=== PATIENT | female | born 1955 | race Caucasian/White ===

== ENCOUNTER 2016-10-16 21:28 | Inpatient (IN) | payer OTHER ==
[~2016-10-16] VITALS: Ht 157.4 cm; Wt 72.6 kg
[~2016-10-16 21:28] MED LIST: ADVAIR 250-501 EACH INH; ADVAIR DISKUS 21 DSK INH; ALBUTEROL SULF0.5 ML INH; ALBUTEROL2.5 MG/3 M INH/SOL; AZITHROMYCIN250 M1 PO; AZITHROMYCIN500 M3 PO; BACTRIM DS 8001 TAB PO; BENZONATATE200 M1 PO; BIAXIN500 M1 PO; COMBIVENT RESPIM4 GM INH; COTOLONE5 MG PO; FLEXERIL10 MG PO; MEDROL4 M2 PO; MOBIC15 MG PO; NICOTINE PATCH1 EACH TOP; NORCO 325 MG-51 TAB PO; PREDNICOT20 MG PO; PREDNISONE10 M2 PO; PREDNISONE20 M1 PO; PREDNISONE5 MG PO; PROAIR HFA0.09 MG/Ac INH; PROAIR HFA8.5 GM INH; Robitussin PO; SPIRIVA18 MCG INH; TESSALON PERLE100 M1 PO; TRAMADOL50 MG PO; TYLENOL #31 TAB PO; ZITHROMAX Z-PA250 M1 PO
--- NOTE | 2016-10-16 21:31 | ED DYSPNEA/ASTHMA COMPLAINT ---
History of Present Illness General Chief Complaint: Dyspnea (COPD, CHF, Other) Stated Complaint: DIFF BREATHING Source: patient Exam Limitations: no limitations Vital Signs & Intake/Output Vital Signs & Intake/Output Vital Signs Date Time Temp Pulse Resp B/P B/P Pulse O2 O2 Flow FiO2 Mean Ox Delivery Rate 10/17 0255 97.6 111 20 131/76 94 Nasal 2.0L Cannula 10/17 0215 94 Nasal 2.0L Cannula 10/17 0144 97.8 109 22 124/73 94 Nasal 2.0L Cannula 10/16 2303 98.0 119 20 124/78 98 Room Air 10/16 2146 96 Non 100% ReBreather 10/16 2144 97 Aerosol 10L Mask 10/160 97.0 136 32 176/95 90 Room Air ED Intake and Output 10/17 0000 10/16 1200 Intake Total 350 Output Total Balance 350 Intake, IV 350 Patient 160 lb Weight Weight Reported by Patient Measurement Method Allergies Coded Allergies: Penicillins (BREAKOUT IN RED BLOTCHES AND BUMPS ALL OVER BODY PER PT 10/16/16) codeine (Intermediate, ITCHING 10/16/16) Reconcile Medications Albuterol Sulfate (Proair Hfa) 90 MCG HFA.AER.AD 2-4 PUF INH Q4-6 PRN PRN shortness of breath Albuterol Sulfate 2.5 MG/3 ML VIAL.NEB 1 Vial INH/OBIE Q4P PRN wheezing/ shortness of breath Reason to Stop at ADM: TR NEBS Fluticasone/Salmeterol (Advair 250-50 Diskus) 1 EACH BLST.W.DEV 1 PUF INH BID COPD (Reported) Reason to Stop at ADM: TR NEBS Ipratropium/Albuterol Sulfate (Combivent Respimat Inhal [place]) 4 GM MIST.INHAL 1 PUFF INH BID PRN SOB (Reported) Reason to Stop at ADM: [facility] NE[facility] Tiotropium [place] (Spiriva) 18 MCG CAP.W.DEV 1 CAP INH DAILY BREATHING PROBLEMS (Reported) Triage Nurses Notes Reviewed? yes Onset: Gradual Duration: hour(s):, getting worse Timing: recent history Severity: moderate, severe Activities at Onset: none Prior Episodes/Possible Cause: occasional episodes Associated Symptoms: cough, wheezing HPI: 61-year-old woman history COPD presents with cough wheezing dyspnea in acute distress. She states that her symptoms began yesterday and progressed throughout the day. She has been taking several nebs without avail. She called 911. The medics arrived and found her O2 sat to be in the low to mid 80s. They gave her a DuoNeb in route which appeared to help her moderately. They noted that she was breathless at rest unable to complete full sentences. She notes no chest pain fever significant sputum headache abdominal pain nausea vomiting diarrhea. Past History Medical History Any Pertinent Medical History? see below for history Neurological: MASTOID OPERATION EENT: RIGHT EAR INFECTIONS Cardiovascular: NONE Respiratory: asthma, COPD Gastrointestinal: NONE Hepatic: hepatitis C, RESOLVED Renal: NONE Musculoskeletal: NONE Psychiatric: NONE Endocrine: NONE Blood Disorders: NONE Cancer(s): NONE COMMUNITY ENGAGEMENT COORDINATOR/Reproductive: NONE History of MRSA: No History of VRE: No History of CDIFF: No Surgical History Surgical History: LEFT MASTOID SURGERY Psychosocial History Who do you live with Significant Other Services at Home None What is your primary language Malay Family History Hx Contributory? No Review of Systems Review of Systems Constitutional: Reports: no symptoms. EENTM: Reports: no symptoms. Respiratory: Reports: no symptoms. Cardiovascular: Reports: no symptoms. GI: Reports: no symptoms. Genitourinary: Reports: no symptoms. Musculoskeletal: Reports: no symptoms. Skin: Reports: no symptoms. Neurological/Psychological: Reports: no symptoms. Hematologic/Endocrine: Reports: no symptoms. Immunologic/Allergic: Reports: no symptoms. All Other Systems: Reviewed and Negative Physical Exam Physical Exam General Appearance: well developed/nourished, moderate distress Head: atraumatic, normal appearance Eyes: Bilateral: normal appearance. Ears, Nose, Throat: normal pharynx Neck: normal inspection Respiratory: accessory muscle use, wheezing, respiratory distress Cardiovascular: regular rate/rhythm Gastrointestinal: normal bowel sounds, soft, non-tender, no organomegaly Extremities: normal inspection Neurologic/Psych: no motor/sensory deficits, awake, alert, oriented x 3 Skin: intact, normal color, warm/dry Core Measures ACS in differential dx? No Severe Sepsis Present: No Septic Shock Present: No Progress Differential Diagnosis: asthma, AMI, CHF, COPD Plan of Care: Orders Procedure Date/time Status Regular Diet 10/17 B Active CBC WITHOUT DIFFERENTIAL 10/17 599 Active BASIC ELECTROLYTES PLUS BUN&CR 10/17 599 Active Vital Signs 10/17 0213 Complete Teach/Educate 10/17 212 Active Pain Treatment and Response 10/17 212 Active Nutritional Intake, Monitor 10/17 212 Active Isolation 10/17 212 Active Intake & Output 10/17 212 Complete Patient Care Conference 10/17 212 Active Activity/Ambulation 10/17 212 Active Pathway - chart 10/17 004 Active Code Status 10/17 0048 Active TRC EVALUATION (GEN) 10/17 UNK Active House Staff 10/17 UNK Active VTE Mechanical Prophylaxis 10/17 UNK Active FingerStick- Glucose 10/17 UNK Active Patient Data 10/16 2334 Active Saline Lock 10/16 2250 Active Misc Message 10/16 2250 Active ED Holding Orders 10/16 2250 Active Admit to inpatient 10/16 2250 Active Vital Signs 10/16 2250 Active Code Status 10/16 2250 Complete Intake & Output 10/16 2248 Active EKG 10/16 2241 Active BLOOD CULTURE 10/16 2134 Active BLOOD CULTURE 10/17 2131 Active TROPONIN LEVEL 10/16 2130 Complete COMPREHENSIVE METABOLIC PANEL 10/16 2130 Complete CBC WITHOUT DIFFERENTIAL 10/16 2130 Complete Current Medications Sig/Mady Start time Last Medication Dose Stop Time Status Admin Azithromycin 500 MG 2200 10/17 2200 AC (Zithromax) Sodium Chloride 250 ML (Normal Saline 0.9%) Budesonide/ 2 PUF BID 10/17 1000 AC Formoterol Fumarate (Symbicort) Enoxaparin Sodium 40 MG DAILY 10/17 1000 AC (Lovenox) Tiotropium [place] 1 PUF DAILY 10/17 1000 AC (Spiriva) Methylprednisolone 40 MG Q6 10/17 0600 AC (Solumedrol) Laboratory Tests 10/16/162155: Anion Gap 12, Estimated GFR > 60, BUN/Creatinine Ratio 20.0, Glucose 133 H, Calcium 9.4, Total Bilirubin 0.5, AST 25, ALT 34, Alkaline Phosphatase 82, Troponin I < 0.01, Total Protein 7.8, Albumin 4.5, Globulin 3.3, Albumin/ Globulin Ratio 1.4, CBC w Diff NO MAN DIFF REQ, RBC 4.64, MCV 81.2, MCH 26.0 L, RDW 14.3, MPV 7.8, Gran % 57.7, Lymphocytes % 31.6, Monocytes % 6.4, Eosinophils % 3.2, Basophils % 1.1, Absolute Granulocytes 7.8 H, Absolute Lymphocytes 4.3 H, Absolute Monocytes 0.9 H, Absolute Eosinophils 0.4, Absolute Basophils 0.1, PUBS MCHC 32.0 L Microbiology 10/16 2217 BLOOD: Blood Culture - RECD 10/16 2199 BLOOD: Blood Culture - RECD Diagnostic Imaging: Viewed by Me: Radiology Read. Discussed w/RAD: Radiology Read. CXR Impression: no acute abnormality, no infiltrates, normal size heart, normal mediastinum Initial ED EKG: SINUS TACH Comments: PATIENT: FABIAN RAMOS PRESENT AGE: 61 PATIENT ACCOUNT NO: [id number] : 59 LOCATION: [facility] ORDERING PHYSICIAN: JAN ODOM MD SERVICE DATE: 10/16/16 EXAM TYPE: RAD - XRY-PORTABLE CHEST XRAY EXAMINATION: XR PORTABLE CHEST CLINICAL INFORMATION: Dyspnea. COMPARISON: Portable chest x-ray 05/28/2016. TECHNIQUE: Portable frontal view of the chest was obtained. FINDINGS: The lungs are well-expanded and clear without focal airspace consolidation. No pleural effusions or pneumothoraces are identified. Cardiomediastinal contours are within normal limits. Soft tissues are unremarkable. No acute osseous abnormality is identified. IMPRESSION: No acute pulmonary process. DICTATED BY: PATEL GUZMAN MD DATE/TIME DICTATED:10/16/162199 [employer]:KIMBER DATE/TIME TRANSCRIBED:10/16/162199 CONFIDENTIAL, DO NOT COPY WITHOUT APPROPRIATE AUTHORIZATION. <Electronically signed in Other Vendor System> SIGNED BY: PATEL GUZMAN MD 10/16/162203 Departure Departure Disposition: STILL A PATIENT Condition: Stable Clinical Impression Primary Impression: COPD exacerbation Secondary Impressions: Respiratory distress Referrals: IDALIA RAMIREZ APRN Departure Forms: Customer Survey General Discharge Information Critical Care Note Critical Care Note Critical Care Time: 30-74 min Comments: Pt responded well to continuous nebs, magnesium sulfate.
--- NOTE | 2016-10-16 21:38 | NUR ---
PT BIBA FROM HOME C/C DIFF BREATHING WITH HX OF COPD/ASTHMA. USED OWN INHALERS MULTIPLE TIMES TODAY AND ARRIVES WITH DUONEB FROM EMS. R/A SATS 90%. +INCREASED WORK OF BREATHING, +TACHYPNEA. PLACED ON NRB MASK WITH SATS IMPROVED. PT DENIES ANY PAIN. DR ODOM INTO EVALUATE PATIENT ON ARRIVAL TO ER. RESP PAGED FOR NEB TREATMENT.
--- NOTE | 2016-10-16 21:38 | NUR ---
RESP AT BEDSIDE FOR NEB TREATMENT
--- NOTE | 2016-10-16 21:39 | NUR ---
IV ACCESS ESTABLISHED #22 RH BY VANNESA WEINSTEIN AND #22 LH BY VANNESA PATEL. IV MAGNESIUM INFUSION INITIATED BY VANNESA ULLOA, PER ORDERS DR ODOM.
--- NOTE | 2016-10-16 21:54 | NUR ---
MEDICATED WITH IV SOLUMEDROL BY VANNESA ULLOA
[2016-10-16 21:57] LABS: ABSOLUTE BASOPHIL COUNT 0.1 /CUMM (0.0-0.2); ABSOLUTE EOSINOPHIL COUNT 0.4 /CUMM (0.0-0.7); ABSOLUTE GRANULOCYTE CT 7.8 /CUMM (1.4-6.5); ABSOLUTE MONOCYTE COUNT 0.9 /CUMM (0.10-0.60); BASOPHIL % 1.1 % (0.0-2.0); EOSINOPHIL % 3.2 % (0-5); GRANULOCYTE % 57.7 % (42.2-75.2); HEMATOCRIT 37.7 % (37-47); MEAN CORPUSCULAR VOLUME 81.2 FL (81.0-99.0); MEAN PLATELET VOLUME 7.8 FL (7.4-10.4); PLATELET COUNT 374 /CUMM (130-400); RBC DISTRIBUTION WIDTH 14.3 % (11.5-14.5); RED BLOOD CELL CT 4.64 /CUMM (4.20-5.40); WHITE BLOOD CELL COUNT 13.6 /CUMM (4.8-10.8)
[2016-10-16 21:58] LABS: ABSOLUTE LYMPH COUNT 4.3 /CUMM (1.2-3.4)
--- NOTE | 2016-10-16 22:04 | RADIOLOGY REPORT ---
EXAMINATION: XR PORTABLE CHEST CLINICAL INFORMATION: Dyspnea. COMPARISON: Portable chest x-ray 05/28/2016. TECHNIQUE: Portable frontal view of the chest was obtained. FINDINGS: The lungs are well-expanded and clear without focal airspace consolidation. No pleural effusions or pneumothoraces are identified. Cardiomediastinal contours are within normal limits. Soft tissues are unremarkable. No acute osseous abnormality is identified. IMPRESSION: No acute pulmonary process.
--- NOTE | 2016-10-16 22:15 | NUR ---
B/C X 2 SETS DRAWN/SENT. DRAWN VIA BUTTERFLY FROM SEPERATE DRAWS. PT DIFFICULT STICK.
--- NOTE | 2016-10-16 22:28 | NUR ---
PT MEDICATED WITH IV ROCEPHIN AND IV ZITHROMAX PER ORDERS DR ODOM.
--- NOTE | 2016-10-16 22:48 | NUR ---
BERENICE NAIDU AT BEDSIDE FOR NEB TREATMENT
--- NOTE | 2016-10-17 00:07 | NUR ---
PT BED ASSIGNMENT 105-1
--- NOTE | 2016-10-17 00:58 | NUR ---
HOUSESTAFF HERE TO EVALUATE PATIENT
--- NOTE | 2016-10-17 01:16 | History & Physical ---
ZARIA CORNELL,[facility] 10/17/16 0103: General Information and HPI MD Statement: I have seen and personally examined FABIAN RAMOS and documented this H&P. The patient is a 61 year old F who presented with a patient stated chief complaint of [shortness of breath]. Source of Information: patient, old records Exam Limitations: no limitations History of Present Illness: Ms. Ramos is 61 year old female with past medical history significant for asthma, COPD not on home oxygen, multiple ear infections, hepatitis C s/p treatment with Harvony. Patient was BIBA with chief complaint of shortness of breath and lightheadedness for 1 day. Patient reported that 2 days ago, she noticed to have shortness of breath, lightheadedness progressively worsened, yesterday she smoked 3 cigarettes in the morning and around noon she used nictone patch as her breathing was getting very hard. She reported dry cough that started yesterday associated with chest tightness from cough spells, denied any fever, chills, palpitation, headache, visual changes, ear pain, sinus pain. upon medics arrival, her O2 sat was found to be in low to mid 80s. Patient denied any sick contact, recent travel. She denied any abdominal pain, nausea vomiting, diarrhea. Patient is very compliant with her medication, used to have her nebulizers and inhalers every day, no history of intubation, no history of ICU admission. She has drug allergy of penicillin and codeine. She had flu and pneumonia vaccine last year. 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 Patient started to smoke again 2 months ago, 6-8 cigarettes per day, last smoking was day of admission in the morning 3 cigarettes. Allergies/Medications Allergies: Coded Allergies: Penicillins (BREAKOUT IN RED BLOTCHES AND BUMPS ALL OVER BODY PER PT 10/16/16) codeine (Intermediate, ITCHING 10/16/16) Home Med list Albuterol Sulfate (Proair Hfa) 90 MCG HFA.AER.AD 2-4 PUF INH Q4-6 PRN PRN shortness of breath Albuterol Sulfate 2.5 MG/3 ML VIAL.NEB 1 Vial INH/OBIE Q4P PRN wheezing/ shortness of breath Reason to Stop at ADM: [facility] NEBS Fluticasone/Salmeterol (Advair 250-50 Diskus) 1 EACH BLST.W.DEV 1 PUF INH BID COPD (Reported) Reason to Stop at ADM: TR NEBS Ipratropium/Albuterol Sulfate (Combivent Respimat Inhal [place]) 4 GM MIST.INHAL 1 PUFF INH BID PRN SOB (Reported) Reason to Stop at ADM: [facility] NEBS Tiotropium [place] (Spiriva) 18 MCG CAP.W.DEV 1 CAP INH DAILY BREATHING PROBLEMS (Reported) Past History Travel History Traveled to [place] past 21 day No Medical History Neurological: NONE EENT: RIGHT EAR INFECTIONS Cardiovascular: NONE Respiratory: asthma, COPD Gastrointestinal: NONE Hepatic: hepatitis C, RESOLVED Renal: NONE Musculoskeletal: NONE Psychiatric: NONE Endocrine: NONE Blood Disorders: NONE Cancer(s): NONE TELEVISION ANNOUNCER/Reproductive: NONE History of MRSA: No History of VRE: No History of CDIFF: No Surgical History Surgical History: LEFT MASTOID SURGERY Past Family/Social History Psychosocial History Services at Home: None ETOH Use: denies use Illicit Drug Use: denies illicit drug use Functional Ability ADLs Independent: dressing, eating, toileting, bathing. Ambulation: independent Review of Systems Review of Systems Constitutional: Reports: see HPI. Exam & Diagnostic Data Last 24 Hrs of Vital Signs/I&O Vital Signs Date Time Temp Pulse Resp B/P B/P Pulse O2 O2 Flow FiO2 Mean Ox Delivery Rate 10/17 0144 97.8 109 22 124/73 94 Nasal 2.0L Cannula 10/16 2303 98.0 119 20 124/78 98 Room Air 10/16 2146 96 Non 100% ReBreather 10/16 2144 97 Aerosol 10L Mask 10/16 213 97.0 136 32 176/95 90 Room Air Intake & Output 10/17 0800 10/17 0000 10/16 1600 Intake Total 350 Output Total Balance 350 Intake, IV 350 Patient 72.575 kg Weight Weight Reported by Patient Measurement Method Physical Exam General Appearance Alert, Oriented X3, Cooperative, No Acute Distress Skin No Rashes, No Breakdown, No Significant Lesion Skin Temp/Moisture Exam: Warm/Dry HEENT Atraumatic, PERRLA, EOMI, Mucous Membr. moist/pink Neck Supple, No JVD Lymphatic no cervical lymphadenopathy Cardiovascular Regular Rate, Normal S1, Normal S2, No Murmurs Lungs bilateral decrease air entery with wheeze and ronchi, prologed expiratory phase Abdomen Normal Bowel Sounds, Soft, No Tenderness Neurological Normal Gait, Normal Speech, Strength at 5/5 X4 Ext, Normal Tone, Sensation Intact, Cranial Nerves 3-12 NL, Reflexes 2+ Extremities No Clubbing, No Cyanosis, No Edema, Normal Pulses Assessment/Plan Assessment: Ms. Ramos is 61 year old female with past medical history significant for asthma, COPD not on home oxygen, multiple ear infections, hepatitis C s/p treatment with Harvony. Patient was BIBA with chief complaint of shortness of breath and lightheadedness for 1 day. On admission Vitals temperature 90.7, blood pressure 176/95, pulse 136, respiratory rate 32 with saturation 97% on 2 L mask, changed to 100% nonrebreather Labs H&H 12.1/377, WBC 13.6, platelets 374, sodium 137, potassium 4.7, chloride 102, bicarbonate 24, BUN/creatinine 12/0.6, glucose 133, troponin < 0.01, LFT WNL Chest x-ray FINDINGS: The lungs are well-expanded and clear without focal airspace consolidation. No pleural effusions or pneumothoraces are identified. Cardiomediastinal contours are within normal limits. Soft tissues are unremarkable. No acute osseous abnormality is identified. IMPRESSION: No acute pulmonary process. Problem list #Acute hypoxic respiratory failure #Acute exacerbation COPD #Reactive leukocytosis #Tachycardia mostly because of beta agonist Plan -Admit patient to general medical floor -Continue Solu-Medrol 40 every 6 -Oxygen supplementation, keep oxygen saturation more than 92 per -Continue azithromycin to finish course of 5 days -TRC, nebs and inhalers -Check flu rapid test -Check Streptococcus and Legionella urine antigen -Palm consultation in a.m. -Smoking cessation counseling -Nicotine patch -Diet regular -DVT prophylaxis heparin subcutaneous -Code full As Ranked By This Provider Problem List: 1. COPD exacerbation Core Measures/Miscellaneous Acute Coronary Syndrome ACS Diagnosis: No Cerebrovascular Accident CVA/TIA Diagnosis: No Congestive Heart Failure CHF Diagnosis: No Venous Thromboembolism VTE Risk Factors: Age > 40 [facility] prophylaxis d/t: No contraindications No VTE Pharm Prophylaxis d/t: No contraindications VTE Diagnosis: No VTE Type: NONE VTE Confirmed by (Test): NONE Severe Sepsis Severe Sepsis Present: No Septic Shock Septic Shock Present: No Miscellaneous Documentation Attending Case Discussed With: AUGUSTINEKADEN TRUJILLO MD Primary Care Physician: JOSIAH HOUSTON APRN Patient sees these Specialists [place] Level of Patient Care: General Medicine GWEN PATEL 10/17/16 0149: Resident Review Statement Resident Statement: examined this patient, discussed with internet architect, agreed with internet architect, amended to note Other Findings: [id number] lady with past medical history of asthma, COPD not on home oxygen, hepatitis C posttreatment, bronchitis? Came with ambulance with chief complaint of shortness of breath and coughing. Reported that she started having shortness of breath about one day ago she also has baseline coughing which got worse for 2 days and she became so bad during the day with shortness of breath and coughing at she called ambulance came to the ED. She also reported lightheadedness with chest tightness. Denies any fever, chills, abdominal pain, nausea, vomiting, headache, and travel, sick contacts. She has started smoking about 3 months ago 6-8 cigarettes daily. She also secondhand smoker. Upon ED arrival patient received multiple nebulizer treatments and low potassium Ventimask for couple of hours however she improved with the treatment and IV magnesium and her oxygen requirement reduced 2 L. She is also tachycardic due to multiple albuterol treatments. Physical exam was notable for bilateral expiratory wheezing, tachycardia with normal S1 S2 ( details are above) CXR: IMPRESSION: No acute pulmonary process. EKG : Sinus tachycardia, 111, QTC 462, acute ST-T changes WBC 13.6, trops negative Assessment and plan #COPD exacerbation due to smoking * Admit the patient to general floor * Keep O2 saturation over 92% * TRC nebs * IV Solu-Medrol 40 mg every 6 hours * IV azithromycin 500 mg daily for 3-5 days * Pulm consult in the morning * follow BC * smoking cessation/ nicotine patch should be provided if needed Full code, DVT prophylaxis is mechanical and Pharmacological Ms. Ramos is 61 year old female with past medical history significant for asthma, COPD not on home oxygen, multiple ear infections, hepatitis C s/p treatment with Harvony. Patient was BIBA with chief complaint of shortness of breath and lightheadedness for 1 day. Patient reported that 2 days ago, she noticed to have shortness of breath, lightheadedness progressively worsened, yesterday she smoked 3 cigarettes in the morning and around noon she used nictone patch as her breathing was getting very hard. She reported dry cough that started today associated with chest tightness from cough spells, denied any fever, chills, palpitation, headache, visual changes, ear pain, sinus pain. Patient denied any sick contact, recent travel. She denied any abdominal pain, nausea vomiting, diarrhea. Patient is very compliant with her medication, used to have her nebulizers and inhalers every day, no history of intubation, no history of ICU admission. She has drug allergy of penicillin and codeine. She had flu and pneumonia vaccine last year. 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 Patient started to smoke again 2 months ago, 6-8 cigarettes per day, last smoking was day of admission in the morning 3 cigarettes. KADEN BRADSHAW 10/17/16 0612: Attending MD Review Statement Attending Statement Attending MD Statement: examined this patient, discuss w/resident/PA/CAR WASH SUPERVISOR, agreed w/resident/PA/CAR WASH SUPERVISOR, reviewed EMR data (avail), reviewed images, amended to note Attending Assessment/Plan: CC: Acute worsening of shortness of breath PMH: COPD, asthma Patient had quit smoking for 2 months, resumed 2 days back, at that time she started to notice worsening of shortness of breath, used her nebulization several times without much relief, today she started to notice cough and breathing was worse. No fever or chills, could not complete the sentence in ER. Vitals: Afebrile, tachycardic, tachypneic, blood pressure in acceptable range. Initially placed on continuous nebulization treatment for one hour, after that patient was saturating well on 2 L nasal cannula. On exam: A O 3, cooperative, in moderate respiratory distress, accessory muscles in use, neck supple, JVD normal, no lymphadenopathy, mucosa moist, no focal neurological deficit, no dependent edema, no obvious skin rashes or inflammation CVS: S1-S2, RRR. RS: Extensive wheezing bilaterally, prolonged expiration. Abdomen: Soft, NT, ND, bowel sounds present. Labs: WBC 13.6, otherwise CBC, BMP, LFT, troponin unremarkable, CXR: No acute pulmonary process A and P + Acute hypoxic respiratory failure + COPD exacerbation + Leukocytosis - Admit to general medicine - Continue scheduled and when necessary Atrovent and albuterol nebulization, TRC - Mucinex 600 mg by mouth twice a day - IV azithromycin - IV methylprednisolone methylprednisolone 40 mg every 6 hours - Nicotine patch - Titrate down oxygen to keep saturation around 92-94% - Pulmonary consult in a.m. - DVT prophylaxis, adequate pain control.
--- NOTE | 2016-10-17 01:19 | NUR ---
PER DR GUTIERREZ PT TO BE CHANGED TO GEN MED ADMISSION
--- NOTE | 2016-10-17 01:34 | NUR ---
CONTINUOUS NEB DONE, PT SATTING 88% ON RA. PLACED ON 2L, SATTING 95%.
--- NOTE | 2016-10-17 01:38 | NUR ---
REPORT TO VANNESA HART
--- NOTE | 2016-10-17 02:00 | NUR ---
REPORT RECEIEVED FROM AURELIO IN ED. PT ARRIVED TO ROOM VIA STRETCHER. ON 2L O2 VIA NC. O2 SAT 94%, BP 131/76, P 111, RR 20, T 98.0F ORAL. DENIES ANY PAIN OR SOB AT REST. IN NO ACUTE DISTRESS. ORIENTED TO CALL BUTTON AND ROOM. WILL CONTINUE TO MONITOR.
[2016-10-17 02:55] VITALS: BP 131/76
--- NOTE | 2016-10-17 06:13 | Admission Certification ---
Admission Certification Certification Statement - As attending physician, I certify that at the time of - admission, based on clinical presentation, severity of - symptoms, need for further diagnostic testing and - therapeutic interventions, and risk of adverse outcomes - without in-hospital treatment, in my clinical assessment, - this patient requires an acute hospital stay for a minimum - of two nights or longer. I have also considered psychsocial - factors such as support system, advanced age, financial - issues, cognitive issues, and failed out-patient treatments, - past re-admission history, safety of patient, and lack of - compliance as applicable. Specific rationale supporting this admission is: COPD exacerbation
[2016-10-17 07:20] VITALS: BP 129/72
--- NOTE | 2016-10-17 08:18 | PN- Housestaff ---
SD CHAU 10/17/16 0818: Subjective Follow-up For: COPD exacerbation Subjective: seen and examined patient. Feels very short of breath on ambulation to the bathroom so bedside commode was provided. Complains of nonproductive cough. Denies fevers,chills, chest pain. Review of Systems Constitutional: Denies: chills, diaphoresis, fever, malaise, weakness, unexplained weight loss. Cardiovascular: Denies: chest pain, edema, orthopena, palpitations, peripheral edema, syncope. Respiratory: Reports: cough, short of breath. Denies: hemoptysis, orthopnea, sputum production, stridor, wheezing. Objective Last 24 Hrs of Vital Signs/I&O Vital Signs Date Time Temp Pulse Resp B/P B/P Pulse O2 O2 Flow FiO2 Mean Ox Delivery Rate 10/17 0800 93 Nasal 3.0L Cannula 10/17 0753 102 10/17 0720 97.5 122 22 129/72 92 Nasal 2.0L Cannula 10/17 0645 91 Nasal 3.0L Cannula 10/17 0255 97.6 111 20 131/76 94 Nasal 2.0L Cannula 10/17 0215 94 Nasal 2.0L Cannula 10/17 0144 97.8 109 22 124/73 94 Nasal 2.0L Cannula 10/16 2303 98.0 119 20 124/78 98 Room Air 10/16 2146 96 Non 100% ReBreather 10/16 214 97 Aerosol 10L Mask 10/16 2130 97.0 136 32 176/95 90 Room Air Intake & Output 10/17 1600 10/17 0800 05/ 0000 Intake Total 240 350 Output Total 400 Balance -160 350 Intake, IV 350 Intake, Oral 240 Output, Urine 400 Patient 160 lb 160 lb Weight Weight Reported by Patient Reported by Patient Measurement Method Physical Exam General Appearance: Alert, Oriented X3, Cooperative, No Acute Distress Cardiovascular: Regular Rate, Normal S1, Normal S2 Lungs: bilateral rhonchi Current Medications: Current Medications Sig/Mady Start time Last Medication Dose Route Stop Time Status Admin Albuterol Sulfate 3 ML EVERY 4 HRS/AWAKE 10/17 1200 AC 10/17 INH 1620 Albuterol Sulfate 3 ML ONCE ONE 10/17 0645 DC 10/17 INH 10/17 0646 0637 Albuterol Sulfate 3 ML ONCE ONE 05/05 2245 DC INH 10/16 224 Albuterol Sulfate 3 ML ONCE ONE 10/16 2144 DC 10/16 INH 10/16 Albuterol Sulfate 3 ML ONCE ONE 10/16 2144 DC 10/16 INH 10/16 Albuterol Sulfate 3 ML ONCE ONE 10/16 2144 DC 10/16 INH 10/16 2145 214 Albuterol Sulfate 3 ML ONCE ONE 10/16 2129 DC 10/16 INH 10/16 Albuterol Sulfate 3 ML ONCE ONE 10/16 2129 DC 10/16 INH 10/16 Albuterol Sulfate 3 ML ONCE ONE 10/16 2129 DC 10/16 INH 10/16 Azithromycin 500 MG 0 10/17 2199 AC Sodium Chloride 250 ML IV Azithromycin 500 MG ONCE ONE 10/16 2144 DC 10/16 Sodium Chloride 250 ML IV 10/17 2243 2228 Budesonide/ 2 PUF BID 10/17 1000 AC 10/17 Formoterol Fumarate INH 0933 Ceftriaxone Sodium 0 .STK-MED ONE 10/16 2233 DC .ROUTE Ceftriaxone Sodium 1,000 MG ONCE ONE 10/16 2229 DC 10/16 IV 10/16 223 2228 Enoxaparin Sodium 40 MG DAILY 10/17 1000 AC 10/17 SC 0932 Guaifenesin 600 MG Q12 10/17 1000 AC 10/17 PO 0933 Ipratropium [place] 2.5 ML ONCE ONE 10/16 2244 DC INH 10/16 224 Ipratropium [place] 2.5 ML ONCE ONE 10/16 2144 DC INH 10/16 2145 Magnesium Sulfate 1 GM ONCE ONE 10/16 2144 DC 10/16 Dextrose/Water 100 ML IV 10/17 0144 2154 Methylprednisolone 40 MG Q6 10/17 0600 AC / IV 1206 Methylprednisolone 125 MG ONCE ONE 10/16 2144 DC 10/16 IV 10/16 214 2154 Methylprednisolone 0 .STK-MED ONE 10/16 2140 DC .ROUTE Nicotine 7 MG DAILY 10/17 1000 AC 10/17 TOP 0932 Tiotropium [place] 1 PUF DAILY / 1000 AC 05/ INH 0932 Last 24 Hrs of Lab/Les Results Last 24 Hrs of Labs/Mics: Laboratory Tests 10/17/16 0715: Anion Gap 14, Estimated GFR > 60, BUN/Creatinine Ratio 18.3, CBC w Diff NO MAN DIFF REQ, RBC 4.55, MCV 80.9 L, MCH 26.1 L, RDW 14.1, MPV 8.1, Gran % 88.3 H, Lymphocytes % 10.6 L, Monocytes % 0.7 L, Eosinophils % 0.4, Basophils % 0 L, Absolute Granulocytes 7.1 H, Absolute Lymphocytes 0.9 L, Absolute Monocytes 0.1 L, Absolute Eosinophils 0, Absolute Basophils 0, PUBS MCHC 32.2 L 10/16/166: Anion Gap 12, Estimated GFR > 60, BUN/Creatinine Ratio 20.0, Glucose 133 H, Calcium 9.4, Total Bilirubin 0.5, AST 25, ALT 34, Alkaline Phosphatase 82, Troponin I < 0.01, Total Protein 7.8, Albumin 4.5, Globulin 3.3, Albumin/ Globulin Ratio 1.4, CBC w Diff NO MAN DIFF REQ, RBC 4.64, MCV 81.2, MCH 26.0 L, RDW 14.3, MPV 7.8, Gran % 57.7, Lymphocytes % 31.6, Monocytes % 6.4, Eosinophils % 3.2, Basophils % 1.1, Absolute Granulocytes 7.8 H, Absolute Lymphocytes 4.3 H, Absolute Monocytes 0.9 H, Absolute Eosinophils 0.4, Absolute Basophils 0.1, PUBS MCHC 32.0 L Microbiology 10/16 2217 BLOOD: Blood Culture - RES 10/16 2199 BLOOD: Blood Culture - RES Assessment/Plan Assessment: 61 year old female with past medical history significant for asthma, COPD not on home oxygen, multiple ear infections, hepatitis C s/p treatment with Harvony. Patient was BIBA with chief complaint of shortness of breath Problem list Acute hypoxic respiratory failure secondary to COPD exacerbation Plan Continue on general medicine floor TRC/nebs, taper oxygen as tolerated Pulmonary on board appreciated recommendations Continue IVs steroids and azithromycin DVT prophylaxis with Lovenox Full code Problem List: 1. Asthma 2. COPD (chronic obstructive pulmonary disease) Pain Ratin Pain Location: na Pain Goal: Pain 4 or less Pain Plan: current regimen Tomorrow's Labs & Rationales: none required SAÚL VALENZUELA MD 10/17/16 1328: Attending MD Review Statement Attending Statement Attending MD Statement: examined this patient, discuss w/resident/PA/CAP AND HAT PRODUCTION SUPERVISOR, agreed w/resident/PA/CAP AND HAT PRODUCTION SUPERVISOR, discussed with family, reviewed EMR data (avail), discussed with nursing, amended to note Attending Assessment/Plan: Patient seen and examined. Lying in bed not in acute distress. She reports feeling better compared to presentation. She is still short of breath with exertion. She denies chest pain. She denies palpitations. She is afebrile and hemodynamically stable. She is maintaining saturation on 3 L of oxygen. On examination she has fair entry bilaterally with diffuse wheezing. Abdomen soft and nontender. She has no peripheral edema. Recommendations: -Continue bronchodilator therapy and systemic steroid therapy. -If she continues to improve clinically taper down steroid therapy tomorrow. -Mobilize patient as tolerated. -I did reinforce the need for smoking cessation.
[2016-10-17 09:13] LABS: ABSOLUTE BASOPHIL COUNT 0 /CUMM (0.0-0.2); ABSOLUTE EOSINOPHIL COUNT 0 /CUMM (0.0-0.7); ABSOLUTE GRANULOCYTE CT 7.1 /CUMM (1.4-6.5); ABSOLUTE LYMPH COUNT 0.9 /CUMM (1.2-3.4); ABSOLUTE MONOCYTE COUNT 0.1 /CUMM (0.10-0.60); BASOPHIL % 0 % (0.0-2.0); EOSINOPHIL % 0.4 % (0-5); HEMATOCRIT 36.8 % (37-47); MEAN CORPUSCULAR HGB 26.1 PG (27.0-31.0); MEAN CORPUSCULAR HGB CONC 32.2 G/DL (33.0-37.0); MEAN CORPUSCULAR VOLUME 80.9 FL (81.0-99.0); MEAN PLATELET VOLUME 8.1 FL (7.4-10.4); PLATELET COUNT 377 /CUMM (130-400); RBC DISTRIBUTION WIDTH 14.1 % (11.5-14.5); RED BLOOD CELL CT 4.55 /CUMM (4.20-5.40)
--- NOTE | 2016-10-17 09:17 | Cons- Pulmonary ---
General Information and HPI Consulting Request Date of Consult: 10/17/16 Requested By: digna Reason for Consult: Exacerbation of COPD History of Present Illness: Patient is 61-year-old with known COPD not on low-flow oxygen continued smoking who presented with increasing wheezing cough shortness of breath chest x-ray was unrevealing patient denies chest pain or hemoptysis Allergies/Medications Allergies: Coded Allergies: Penicillins (BREAKOUT IN RED BLOTCHES AND BUMPS ALL OVER BODY PER PT 10/16/16) codeine (Intermediate, ITCHING 10/16/16) Home Med List: Albuterol Sulfate (Proair Hfa) 90 MCG HFA.AER.AD 2-4 PUF INH Q4-6 PRN PRN shortness of breath Albuterol Sulfate 2.5 MG/3 ML VIAL.NEB 1 Vial INH/OBIE Q4P PRN wheezing/ shortness of breath Reason to Stop at ADM: TR NEBS Fluticasone/Salmeterol (Advair 250-50 Diskus) 1 EACH BLST.W.DEV 1 PUF INH BID COPD (Reported) Reason to Stop at ADM: TR NEBS Ipratropium/Albuterol Sulfate (Combivent Respimat Inhal [place]) 4 GM MIST.INHAL 1 PUFF INH BID PRN SOB (Reported) Reason to Stop at ADM: [facility] NEBS Tiotropium [place] (Spiriva) 18 MCG CAP.W.DEV 1 CAP INH DAILY BREATHING PROBLEMS (Reported) Review of Systems Review of Systems Constitutional: Denies: chills, fever. Cardiovascular: Denies: chest pain. Respiratory: Reports: cough, short of breath, wheezing. Denies: hemoptysis, stridor. GI: Denies: abdominal pain, diarrhea, melena. Past History Travel History Traveled to [place] past 21 day No Medical History Blood Transfusion Hx: Yes Neurological: NONE EENT: RIGHT EAR INFECTIONS Cardiovascular: NONE Respiratory: asthma, bronchitis, COPD Gastrointestinal: NONE Hepatic: hepatitis C, RESOLVED Renal: NONE Musculoskeletal: NONE Psychiatric: NONE Endocrine: NONE Blood Disorders: NONE Cancer(s): NONE FIRE PILOT/Reproductive: NONE Surgical History Surgical History: hysterectomy, LEFT MASTOID SURGERY Psychosocial History Services at Home: None Smoking Status: Current Everyday Smoker ETOH Use: denies use Illicit Drug Use: denies illicit drug use Functional Ability ADLs Independent: dressing, eating, toileting, bathing. Ambulation: independent Exam & Diagnostic Data Last 24 Hrs of Vital Signs/I&O Vital Signs Date Time Temp Pulse Resp B/P B/P Pulse O2 O2 Flow FiO2 Mean Ox Delivery Rate 10/17 0753 102 10/17 0720 97.5 122 22 129/72 92 Nasal 2.0L Cannula 10/17 0645 91 Nasal 3.0L Cannula 10/17 0255 97.6 111 20 131/76 94 Nasal 2.0L Cannula 10/17 0215 94 Nasal 2.0L Cannula 10/17 0144 97.8 109 22 124/73 94 Nasal 2.0L Cannula 10/16 2303 98.0 119 20 124/78 98 Room Air 10/16 214 96 Non 100% ReBreather 10/16 2144 97 Aerosol 10L Mask 10/16 2129 97.0 136 32 176/95 90 Room Air Intake & Output 10/17 1600 10/17 0800 05 0000 Intake Total 240 350 Output Total 400 Balance -160 350 Intake, IV 350 Intake, Oral 240 Output, Urine 400 Patient 160 lb 160 lb Weight Weight Reported by Patient Reported by Patient Measurement Method Oxygen saturation 2 L 92% HEENT exam shows no adenopathy exam for chest shows diffuse wheezing cardiac exam shows a regular S1 and S2 abdomen is soft nontender there's no edema Last 48 Hrs of Labs/Les: Laboratory Tests 10/17/16 0715: Anion Gap 14, Estimated GFR > 60, BUN/Creatinine Ratio 18.3, CBC w Diff Pending, WBC Pending, RBC Pending, Hgb Pending, Hct Pending, MCV Pending, MCH Pending, RDW Pending, Plt Count Pending, MPV Pending, PUBS MCHC Pending 10/16/166: Anion Gap 12, Estimated GFR > 60, BUN/Creatinine Ratio 20.0, Glucose 133 H, Calcium 9.4, Total Bilirubin 0.5, AST 25, ALT 34, Alkaline Phosphatase 82, Troponin I < 0.01, Total Protein 7.8, Albumin 4.5, Globulin 3.3, Albumin/ Globulin Ratio 1.4, CBC w Diff NO MAN DIFF REQ, RBC 4.64, MCV 81.2, MCH 26.0 L, RDW 14.3, MPV 7.8, Gran % 57.7, Lymphocytes % 31.6, Monocytes % 6.4, Eosinophils % 3.2, Basophils % 1.1, Absolute Granulocytes 7.8 H, Absolute Lymphocytes 4.3 H, Absolute Monocytes 0.9 H, Absolute Eosinophils 0.4, Absolute Basophils 0.1, PUBS MCHC 32.0 L Assessment/Plan Impression/Plan: 61-year-old with COPD actively smoking is admitted with exacerbation of COPD Recommendations: Taper FiO2 his saturations allow continue IV steroids and azithromycin obtain sputum C&S DVT prophylaxis patient is been counseled regarding the absolute need for smoking cessation Consult Acknowledgment - Thank you for your consult request.
[2016-10-17 13:19] LABS: GRANULOCYTE % 88.3 % (42.2-75.2)
[2016-10-17 15:22] VITALS: BP 118/62
[2016-10-17 23:53] VITALS: BP 116/67
[2016-10-18 06:53] VITALS: BP 110/72
--- NOTE | 2016-10-18 07:52 | PN- Housestaff ---
SD CHAU 10/18/16 0752: Subjective Follow-up For: COPD exacerbation Subjective: Seen and examined patient. Her breathing feels improved to her. Endorses some minimally productive cough (clear coloured). Denies fevers, chills, chest pain, palpitations. Review of Systems Constitutional: Denies: chills, diaphoresis, fever, malaise, weakness, unexplained weight loss. Cardiovascular: Denies: chest pain, edema, orthopena, palpitations, peripheral edema, syncope. Respiratory: Denies: cough, hemoptysis, orthopnea, short of breath, sputum production, stridor, wheezing. Objective Last 24 Hrs of Vital Signs/I&O Vital Signs Date Time Temp Pulse Resp B/P B/P Pulse O2 O2 Flow FiO2 Mean Ox Delivery Rate 10/18 0757 94 Room Air Room Air 10/18 0653 97.7 85 20 110/72 95 Room Air 10/17 2353 99.0 110 20 116/67 93 Room Air 10/17 1620 97 Nasal 2.0L Cannula 10/17 1600 96 Nasal 2.0L Cannula 10/17 1522 98.5 107 22 118/62 97 Nasal 3.0L Cannula 10/17 1104 Nasal 3.0L Cannula 10/17 1101 97 Nasal 3.0L Cannula Intake & Output 10/18 1600 10/18 0800 / 0000 Intake Total 240 270 Output Total Balance 240 270 Intake, IV 150 Intake, Oral 240 120 Physical Exam General Appearance: Alert, Oriented X3, Cooperative, No Acute Distress Cardiovascular: Regular Rate, Normal S1, Normal S2 Lungs: b/l rhonchi and expiratory scattered wheezes Current Medications: Current Medications Sig/Mady Start time Last Medication Dose Route Stop Time Status Admin Albuterol Sulfate 3 ML EVERY 4 HRS/AWAKE / 1200 AC 10/18 INH 0755 Azithromycin 500 MG 2200 10/17 2200 AC 10/17 Sodium Chloride 250 ML IV 2239 Budesonide/ 2 PUF BID 10/17 1000 AC / Formoterol Fumarate INH 2239 Enoxaparin Sodium 40 MG DAILY 10/17 1000 AC / SC 0932 Guaifenesin 600 MG Q12 / 1000 AC 05/06 PO 2239 Methylprednisolone 40 MG Q8 10/18 1400 UNVr IV Methylprednisolone 40 MG Q6 10/17 0600 DC 10/18 IV 0551 Nicotine 7 MG DAILY 10/17 1000 AC 10/17 TOP 0932 Tiotropium [place] 1 PUF DAILY 10/17 1000 AC 10/17 INH 0932 Assessment/Plan Assessment: 61 year old female with past medical history significant for asthma, COPD not on home oxygen, multiple ear infections, hepatitis C s/p treatment with Harvony. Patient was BIBA with chief complaint of shortness of breath Problem list Acute hypoxic respiratory failure secondary to COPD exacerbation Plan Continue on general medicine floor TRC/nebs, taper oxygen as tolerated Pulmonary on board appreciated recommendations will decrease IV Solumedrol to q8 and continue azithromycin DVT prophylaxis with Lovenox regular diet Full code Problem List: 1. Respiratory distress 2. COPD (chronic obstructive pulmonary disease) Pain Ratin Pain Location: na Pain Goal: Pain 4 or less Pain Plan: current regimen Tomorrow's Labs & Rationales: none required SAÚL VALENZUELA MD 10/18/16 1204: Attending MD Review Statement Attending Statement Attending MD Statement: examined this patient, discuss w/resident/PA/TUTORING MANAGER, agreed w/resident/PA/TUTORING MANAGER, reviewed EMR data (avail), discussed with nursing, discussed with case mgmt, amended to note Attending Assessment/Plan: Patient seen and examined. Resting comfortably and not in acute distress. No issues overnight. She is afebrile hemodynamically stable. She is maintaining saturation on room air. She was eager to be discharged today however on examination she still wheezing diffusely bilaterally. Continue bronchodilator therapy. Taper down her Solu-Medrol dose today. Switch to oral azithromycin. Anticipate discharge in the next 24-48 hours if pulmonary status continues to improve.
--- NOTE | 2016-10-18 10:07 | PN- Pulmonary ---
Subjective HPI/Critical Care Issues: Patient feels somewhat more comfortable continues to wheeze Objective Current Medications: Current Medications Sig/Mady Start time Last Medication Dose Route Stop Time Status Admin Albuterol Sulfate 3 ML EVERY 4 HRS/AWAKE 10/17 1200 AC 10/18 INH 0755 Azithromycin 250 MG DAILY 10/18 1000 AC PO Azithromycin 500 MG 2200 10/17 2200 DC 10/17 Sodium Chloride 250 ML IV 2239 Budesonide/ 2 PUF BID 10/17 1000 AC 10/17 Formoterol Fumarate INH 2239 Enoxaparin Sodium 40 MG DAILY 10/17 1000 AC 10/17 SC 0932 Guaifenesin 600 MG Q12 10/17 1000 AC 10/17 PO 2239 Methylprednisolone 40 MG Q8 10/18 1400 AC IV Methylprednisolone 40 MG Q6 10/17 0600 DC 10/18 IV 0551 Nicotine 7 MG DAILY 10/17 1000 AC 10/17 TOP 0932 Tiotropium [place] 1 PUF DAILY 10/17 1000 AC 10/17 INH 0932 Vital Signs & I&O Last 24 Hrs of Vitals and I&O: Vital Signs Date Time Temp Pulse Resp B/P B/P Pulse O2 O2 Flow FiO2 Mean Ox Delivery Rate 10/18 0757 94 Room Air Room Air 10/18 0653 97.7 85 20 110/72 95 Room Air 10/17 2353 99.0 110 20 116/67 93 Room Air 10/17 1620 97 Nasal 2.0L Cannula 10/17 1600 96 Nasal 2.0L Cannula 10/17 1522 98.5 107 22 118/62 97 Nasal 3.0L Cannula 10/17 1104 Nasal 3.0L Cannula 10/17 1101 97 Nasal 3.0L Cannula Intake & Output 10/18 1600 10/18 0800 05/ 0000 Intake Total 240 270 Output Total Balance 240 270 Intake, IV 150 Intake, Oral 240 120 Murmur oxygen saturation 94% exam for chest continues show bilateral wheezing cardiac exam shows normal S1 and S2 without murmurs Impression/Plan Impression/Plan Impression/Plan: 61-year-old with COPD actively smoking is admitted with exacerbation of COPD Recommendations: Continue IV steroids with purpura prednisone tomorrow. Obtain sputum C&S. Assess oxygen saturations with ambulation
[2016-10-18 14:16] VITALS: BP 120/72
[2016-10-18 22:29] VITALS: BP 120/60
--- NOTE | 2016-10-19 06:34 | PN- Housestaff ---
Subjective Follow-up For: COPD exacerbation Subjective: Seen and examined patient. family at bedside, feels like her breathing is at baseline and would like to be discharged. Review of Systems Constitutional: Denies: chills, diaphoresis, fever, malaise, weakness, unexplained weight loss. Cardiovascular: Denies: chest pain, edema, orthopena, palpitations, peripheral edema, syncope. Respiratory: Denies: cough, hemoptysis, orthopnea, short of breath, sputum production, stridor, wheezing. Objective Last 24 Hrs of Vital Signs/I&O Vital Signs Date Time Temp Pulse Resp B/P B/P Pulse O2 O2 Flow FiO2 Mean Ox Delivery Rate 10/19 0754 97 Room Air Room Air 10/19 0635 97.9 80 20 124/70 94 Room Air 05/ 0000 95 Room Air / 2229 98.2 73 20 120/60 95 Room Air / 1555 97 Room Air / 1416 97.9 66 20 120/72 94 Intake & Output 10/19 1600 /08 0800 05/08 0000 Intake Total 270 Output Total Balance 270 Intake, IV 30 Intake, Oral 240 Number 0 Bowel Movements Physical Exam General Appearance: Alert, Oriented X3, Cooperative, No Acute Distress Cardiovascular: Regular Rate, Normal S1, Normal S2 Lungs: b/l rhonchi and expiratory wheezes Current Medications: Current Medications Sig/Mady Start time Last Medication Dose Route Stop Time Status Admin Albuterol Sulfate 3 ML EVERY 4 HRS/AWAKE / 1200 AC 10/19 INH 0750 Azithromycin 250 MG DAILY 10/18 1000 AC / PO 1407 Azithromycin 500 MG 2200 / 2200 DC 05/ Sodium Chloride 250 ML IV 2239 Budesonide/ 2 PUF BID / 1000 AC 10/18 Formoterol Fumarate INH 2231 Enoxaparin Sodium 40 MG DAILY / 1000 AC / SC 1147 Guaifenesin 600 MG Q12 / 1000 AC 05/ PO 2231 Methylprednisolone 40 MG Q8 / 1400 AC 05/ IV 0539 Methylprednisolone 40 MG Q6 / 0600 DC 05/ IV 0551 Nicotine 7 MG DAILY / 1000 AC 10/18 TOP 1148 Tiotropium [place] 1 PUF DAILY / 1000 AC 10/18 INH 1145 Assessment/Plan Assessment: 61 year old woman, current smoker with past medical history significant for asthma, COPD not on home oxygen, multiple ear infections, hepatitis C s/p treatment with Harvony. Patient was BIBA with chief complaint of shortness of breath. Problem list Acute hypoxic respiratory failure secondary to COPD exacerbation Plan Continue on general medicine floor TRC/nebs, 94% on RA Pulmonary on board appreciated recommendations on IV Solumedrol to q8 and continue azithromycin day 2 DVT prophylaxis with Lovenox regular diet Full code Problem List: 1. COPD (chronic obstructive pulmonary disease) Pain Ratin Pain Location: na Pain Goal: Pain 4 or less Pain Plan: current regimen Tomorrow's Labs & Rationales: none required
[2016-10-19 06:35] VITALS: BP 124/70
--- NOTE | 2016-10-19 08:12 | PN- Pulmonary ---
Subjective HPI/Critical Care Issues: Patient feels well ambulating on the floor without shortness of breath Objective Current Medications: Current Medications Sig/Mady Start time Last Medication Dose Route Stop Time Status Admin Albuterol Sulfate 3 ML EVERY 4 HRS/AWAKE 10/17 1200 AC 10/19 INH 0750 Azithromycin 250 MG DAILY 10/18 1000 AC 05 PO 1407 Azithromycin 500 MG 2200 / 2200 DC 10/17 Sodium Chloride 250 ML IV 2239 Budesonide/ 2 PUF BID 10/17 1000 AC 10/18 Formoterol Fumarate INH 2231 Enoxaparin Sodium 40 MG DAILY 10/17 1000 AC 10/18 SC 1147 Guaifenesin 600 MG Q12 10/17 1000 AC 10/18 PO 2231 Methylprednisolone 40 MG Q8 10/18 1400 AC 10/19 IV 0539 Methylprednisolone 40 MG Q6 10/17 0600 DC 10/18 IV 0551 Nicotine 7 MG DAILY 10/17 1000 AC 10/18 TOP 1148 Tiotropium [place] 1 PUF DAILY 10/17 1000 AC 10/18 INH 1145 Vital Signs & I&O Last 24 Hrs of Vitals and I&O: Vital Signs Date Time Temp Pulse Resp B/P B/P Pulse O2 O2 Flow FiO2 Mean Ox Delivery Rate 10/19 0754 97 Room Air Room Air / 0635 97.9 80 20 124/70 94 Room Air 05/08 0000 95 Room Air / 2229 98.2 73 20 120/60 95 Room Air /07 1555 97 Room Air / 1416 97.9 66 20 120/72 94 Intake & Output 10/19 1600 05/08 0800 05/08 0000 Intake Total 270 Output Total Balance 270 Intake, IV 30 Intake, Oral 240 Number 0 Bowel Movements Room oxygen saturation 97% exam for chest continues to show expiratory wheezing cardiac exam shows normal S1 and S2 without murmurs Impression/Plan Impression/Plan Impression/Plan: 61-year-old with COPD actively smoking is admitted with exacerbation of COPD Recommendations: . Obtain sputum C&S. Assess oxygen saturations with ambulation slow prednisone taper. Patient has a nebulizer at home. Encourage return to COPD clinic. Possible discharge later today
--- NOTE | 2016-10-19 08:37 | Patient Discharge Instructions ---
See Addendum Discharge Instructions General Discharge Information You were seen/treated for: COPD Exacerbation Special Instructions: Please f/up with your PCP within two weeks of discharge Please f/up with your consulting intern within two weeks of discharge Acute Coronary Syndrome Inclusion Criteria At DC or during hospital stay patient has or had the following: ACS DIAGNOSIS No Discharge Core Measures Meds if any: Prescribed or Continued at Discharge Meds if any: NOT Prescribed or Continued at Discharge Congestive Heart Failure Inclusion Criteria At DC or during hospital stay patient has or had the following: CHF DIAGNOSIS No Discharge Core Measures Meds if any: Prescribed or Continued at Discharge Meds if any: NOT Prescribed or Continued at Discharge Cerebrovascular accident Inclusion Criteria At DC or during hospital stay patient has or had the following: CVA/TIA Diagnosis No Discharge Core Measures Meds if any: Prescribed or Continued at Discharge Meds if any: NOT Prescribed or Continued at Discharge Venous thromboembolism Inclusion Criteria VTE Diagnosis No VTE Type NONE VTE Confirmed by (Test) NONE Discharge Core Measures - Per Current guidelines, there needs to be overlap - treatment for the first 5 days of Warfarin therapy. - If discharged on Warfarin prior to 5 days of - overlap therapy, the patient will need to be - assessed for post discharge needs including - *Post discharge parental anticoagulation - *Warfarin and/or parental anticoagulation education - *Follow up date to check INR post discharge At least 5 days overlap therapy as Inpatient No Meds if any: Prescribed or Continued at Discharge Note: Overlap Therapy is Warfarin and Anticoagulant Meds if any: NOT Prescribed or Continued at Discharge
[2016-10-19 14:37] VITALS: BP 110/63
[2016-10-19 23:09] VITALS: BP 115/74
[2016-10-20 06:42] VITALS: BP 134/69
--- NOTE | 2016-10-20 08:03 | PN- Housestaff ---
MOUNIKA CORNELL,CRYSTAL 10/20/16 0803: Subjective Follow-up For: COPD exacerbation Complaints: no complaints Subjective: I followed up and examined the patient today. She is resting comfortably in bed , not using any additional oxygen, not in distress, and offers no complaints. When questioned, she mentioned that she was able to walk short distances but would feel short of breath afterwards. Her appetite is improved, and she is awaiting her discharge. Vital signs otherwise have been stable, no overnight issues. Review of Systems Constitutional: Reports: see HPI. Objective Last 24 Hrs of Vital Signs/I&O Vital Signs Date Time Temp Pulse Resp B/P B/P Pulse O2 O2 Flow FiO2 Mean Ox Delivery Rate 10/20 0841 94 Room Air 10/20 0815 95 Room Air 10/20 0642 98.0 75 20 134/69 94 Room Air 10/20 0000 96 Room Air 10/19 2309 98.0 80 20 115/74 96 Room Air 10/19 1625 97 Room Air 10/19 1600 Room Air 10/19 1437 98.1 80 20 110/63 95 Room Air Intake & Output 10/20 1600 10/20 0800 05/ 0000 Intake Total 250 450 Output Total Balance 250 450 Intake, IV 10 Intake, Oral 240 450 Number 1 0 Bowel Movements Physical Exam General Appearance: Alert, Oriented X3, Cooperative, No Acute Distress Other Physical Findings: General Appearance: Alert, Oriented X3, Cooperative, No Acute Distress Cardiovascular: Regular Rate, Normal S1, Normal S2 Lungs: b/l wheezes heard, patient not in respiratory distress however Neuro: Grossly intact Current Medications: Current Medications Sig/Mady Start time Last Medication Dose Route Stop Time Status Admin Albuterol Sulfate 3 ML EVERY 4 HRS/AWAKE 10/17 1200 AC 10/20 INH 1126 Azithromycin 250 MG DAILY 10/18 1000 AC 10/20 PO 0956 Budesonide/ 2 PUF BID 10/17 1000 AC 10/20 Formoterol Fumarate INH 0957 Docusate Sodium 100 MG DAILY 10/19 1533 AC 10/19 PO 1759 Enoxaparin Sodium 40 MG DAILY 10/17 1000 AC 10/18 SC 1147 Guaifenesin 600 MG Q12 10/17 1000 AC / PO 0956 Methylprednisolone 40 MG DAILY 10/20 1000 AC 10/20 IV 0956 Methylprednisolone 40 MG Q12 10/19 2200 DC 10/19 IV 2156 Nicotine 7 MG DAILY 10/17 1000 AC 10/20 TOP 0956 Patient Medication 1 ED .STK-MED ONE 10/19 1402 DC Teaching ED 10/19 1403 Polyethylene Glycol 17 GM DAILY 10/19 1533 AC 10/19 PO 1759 Senna/Docusate Sodium 2 TAB DAILY 10/19 1533 AC 10/19 PO 1759 Tiotropium [place] 1 PUF DAILY 10/17 1000 AC 10/20 INH 0957 Last 24 Hrs of Lab/Les Results Last 24 Hrs of Labs/Mics: Microbiology 10/20 1239 LOWER RESP: Respiratory Culture - ORD 10/20 1239 LOWER RESP: Gram Stain - ORD Assessment/Plan Assessment: 61 year old woman, current smoker with past medical history significant for asthma, COPD not on home oxygen, multiple ear infections, hepatitis C s/p treatment with Harvony. Patient was BIBA with chief complaint of shortness of breath. Problem list Acute hypoxic respiratory failure secondary to COPD exacerbation Plan Continue on general medicine floor TRC/nebs, 94% on RA Pulmonary on board appreciated recommendations Repeat chest x-ray does not show any new changes. on IV Solumedrol daily and continue azithromycin DVT prophylaxis with Lovenox regular diet Full code Discharge disposition: Patient is stable enough to be discharged home as she is not using additional oxygen, not in distress as walking around. Problem List: 1. COPD exacerbation 2. Nicotine dependence Pain Ratin Pain Location: - Pain Goal: Pain 4 or less Pain Plan: prn Tomorrow's Labs & Rationales: - BIANCA CORNELL,SAÚL 10/20/16 1532: Attending MD Review Statement Attending Statement Attending MD Statement: examined this patient, discuss w/resident/PA/PLASTERING CONTRACTOR, agreed w/resident/PA/PLASTERING CONTRACTOR, reviewed EMR data (avail), discussed with nursing, discussed with case mgmt, amended to note Attending Assessment/Plan: Patient seen and examined. Resting comfortably not in acute distress. Ambulating freely around the unit. Not requiring oxygen supplementation. On auscultation she does have mild rhonchi bilaterally but significantly improved compared to past few days. Chest x-ray was ordered by the pulmonology service today. Shows no acute process. At this point in time patient medically stable to discharge home. She'll be provided with a prednisone taper. She has been advised to persist with smoking cessation. She will follow-up with the COPD clinic.
--- NOTE | 2016-10-20 08:47 | PN- Pulmonary ---
Subjective HPI/Critical Care Issues: Patient feels somewhat more short of breath this morning and has continued wheezing. Objective Current Medications: Current Medications Sig/Mady Start time Last Medication Dose Route Stop Time Status Admin Albuterol Sulfate 3 ML EVERY 4 HRS/AWAKE 10/17 1200 AC 10/20 INH 0829 Azithromycin 250 MG DAILY 10/18 1000 AC / PO 1036 Budesonide/ 2 PUF BID / 1000 AC 10/19 Formoterol Fumarate INH 2156 Docusate Sodium 100 MG DAILY 10/19 1533 AC 10/19 PO 1759 Enoxaparin Sodium 40 MG DAILY 10/17 1000 AC 10/18 SC 1147 Guaifenesin 600 MG Q12 10/17 1000 AC 10/19 PO 2157 Methylprednisolone 40 MG Q12 10/19 2200 AC 10/19 IV 2156 Methylprednisolone 40 MG Q8 10/18 1400 DC 10/19 IV 0539 Nicotine 7 MG DAILY 10/17 1000 AC 10/19 TOP 1036 Patient Medication 1 ED .STK-MED ONE 10/19 1402 DC Teaching ED 10/19 1403 Polyethylene Glycol 17 GM DAILY 10/19 1533 AC 10/19 PO 1759 Senna/Docusate Sodium 2 TAB DAILY 10/19 1533 AC / PO 1759 Tiotropium [place] 1 PUF DAILY 10/17 1000 AC 10/19 INH 1037 Vital Signs & I&O Last 24 Hrs of Vitals and I&O: Vital Signs Date Time Temp Pulse Resp B/P B/P Pulse O2 O2 Flow FiO2 Mean Ox Delivery Rate 10/20 0841 94 Room Air / 0815 95 Room Air / 0642 98.0 75 20 134/69 94 Room Air 05/ 0000 96 Room Air / 2309 98.0 80 20 115/74 96 Room Air / 1625 97 Room Air / 1600 Room Air / 1437 98.1 80 20 110/63 95 Room Air Intake & Output / 1600 05/ 0800 05/09 0000 Intake Total 250 450 Output Total Balance 250 450 Intake, IV 10 Intake, Oral 240 450 Number 1 0 Bowel Movements Section saturation 94% exam for chest shows bilateral wheezes cardiac exam shows normal S1 and S2 without murmurs Impression/Plan Impression/Plan Impression/Plan: 61-year-old with COPD actively smoking is admitted with exacerbation of COPD and persistent bronchospasm Recommendations: . Obtain sputum C&S. Assess oxygen saturations with ambulation slow prednisone taper. Patient has a nebulizer at home. Encourage return to COPD clinic. Repeat chest x-ray with persistent wheezing.
--- NOTE | 2016-10-20 11:03 | NUR ---
NURSING NOTE: PT LEFT FLOOR VIA STRETCHER FOR CXR PER MD ORDER. PT AWAKE, A/OX3, ROOM AIR, IV PATENT, DENIES CP, AWAIT RETURN TO FLOOR.
--- NOTE | 2016-10-20 14:47 | RADIOLOGY REPORT ---
EXAMINATION: XR CHEST CLINICAL INFORMATION: Persistent wheezing in setting of COPD exacerbation. Follow-up chest x-ray. COMPARISON: Chest x-ray dated 10/16/2016 and several prior chest x-rays. The scan of the chest dated 05/04/2016. TECHNIQUE: 2 views of the chest were obtained. FINDINGS: The cardiomediastinal silhouette is within normal limits in size. Lungs are hyperinflated with flattening of the hemidiaphragms and increase in retrosternal airspace seen. Central airways are thickened and slight coarsening of the lung markings is seen. Findings are consistent with obstructive lung disease. No focal consolidation, effusion or pneumothorax is noted. The multiple pulmonary nodules seen on prior CT scan and including the calcified left lower lobe pleural-based nodules and a calcified bilateral hilar lymph nodes are poorly appreciated on plain film. Faint nodular densities are seen projected over the left midlung and the left CP angle region. Per recommendation on prior CT scan, follow-up CT scan of the chest was suggested and is due April 2017. Bony structures are unremarkable. IMPRESSION: 1. Findings consistent with obstructive lung disease. 2. No new superimposed focal consolidation seen. 3. Known pulmonary nodules and masses poorly appreciated on plain film.
[2016-10-20 15:06] VITALS: BP 110/73
[2016-10-20] MEDS ORDERED: GUAIFENESIN ER600 MG PO (15:31)
[2016-10-20] MEDS ORDERED: [UNRECOGNIZED DRUG - OTHER] INH (15:31)
[2016-10-20] MEDS ORDERED: PREDNISONE10 M2 PO (15:31)
--- NOTE | 2016-11-18 05:24 | Discharge Summary ---
Visit Information Visit Dates Admission Date: 10/16/16 Discharge Date: 10/20/16 Hospital Course Course Attending Physician: SAÚL VALENZUELA M.D Primary Care Physician: JOSIAH HOUSTON APRN [facility] Course: 61 year old woman with past medical history significant for asthma, COPD not on home oxygen, multiple ear infections, hepatitis C s/p treatment with Harvony. Patient was BIBA to [facility] with chief complaint of shortness of breath. In Ed Vitals: Afebrile, tachycardic, tachypneic, blood pressure in acceptable range. Initially placed on continuous nebulization treatment for one hour, after which she saturated well on 2 L nasal cannula. Labs: WBC 13.6, otherwise CBC, BMP, LFT, troponin unremarkable, CXR: No acute pulmonary process She was admitted to the General medicine for for acute hypoxic respiratory failure secondary to COPD exacerbation. Was treated with IV Soloumedrol and was discharged on a prednisone taper. She was also given a course of Azithromycin. Was advised extensively on the need for smoking cesstion. She was also instructed to follow-up with the COPD clinic. Complications: none Allergies: Coded Allergies: Penicillins (BREAKOUT IN RED BLOTCHES AND BUMPS ALL OVER BODY PER PT 10/16/16) codeine (Intermediate, ITCHING 10/16/16) Significant Procedures: SERVICE DATE: 10/16/16 EXAM TYPE: RAD - XRY-PORTABLE CHEST XRAY FINDINGS: The lungs are well-expanded and clear without focal airspace consolidation. No pleural effusions or pneumothoraces are identified. Cardiomediastinal contours are within normal limits. Soft tissues are unremarkable. No acute osseous abnormality is identified. IMPRESSION: No acute pulmonary process. Pertinent Lab Results: SERVICE DATE: 10/20/16 EXAM TYPE: RAD - XRY-CHEST XRAY, PA AND LATERAL FINDINGS: The cardiomediastinal silhouette is within normal limits in size. Lungs are hyperinflated with flattening of the hemidiaphragms and increase in retrosternal airspace seen. Central airways are thickened and slight coarsening of the lung markings is seen. Findings are consistent with obstructive lung disease. No focal consolidation, effusion or pneumothorax is noted. The multiple pulmonary nodules seen on prior CT scan and including the calcified left lower lobe pleural-based nodules and a calcified bilateral hilar lymph nodes are poorly appreciated on plain film. Faint nodular densities are seen projected over the left midlung and the left CP angle region. Per recommendation on prior CT scan, follow-up CT scan of the chest was suggested and is due April 2017. Bony structures are unremarkable. IMPRESSION: 1. Findings consistent with obstructive lung disease. 2. No new superimposed focal consolidation seen. 3. Known pulmonary nodules and masses poorly appreciated on plain film. Disposition Summary Disposition Principal Diagnosis: acute hypoxic respiratory failure Additional Diagnosis: COPD smoking Discharge Disposition: home or self care Discharge Instructions General Discharge Information Code Status: Full Code Patient's Diet: Regular diet Patient's Activity: full Follow-Up Instructions/Appts: f/up with PCP within two weeks of discharge f/up with your auto garage attendant within two weeks of discharge Medications at Discharge Discharge Medications: Continue taking these medications: Ipratropium/Albuterol Sulfate (Combivent Respimat Inhal [place]) 4 GM MIST.INHAL 1 PUFF Inhale through mouth TWICE DAILY as needed for SOB Days = 30 Instructions: Reason to Stop at ADM: [facility] Comments: NOT GIVEN IN HOSPITAL Fluticasone/Salmeterol (Advair 250-50 Diskus) 1 EACH BLST.W.DEV 1 Puff Inhale through mouth TWICE DAILY Qty = 60 Instructions: Reason to Stop at ADM: [facility] Comments: SYMBICORT GIVEN 10/20/16 @1000AM Albuterol Sulfate (Albuterol Sulfate) 2.5 MG/3 ML VIAL.NEB 1 Vial Inhale Solution EVERY 4 HOURS NEEDED as needed for wheezing/ shortness of breath Qty = 50 Instructions: Reason to Stop at ADM: [facility] Comments: Last Taken:10/20/16 Time: 1200PM Tiotropium [place] (Spiriva) 18 MCG CAP.W.DEV 1 Capsule Inhale through mouth DAILY Qty = 30 Comments: Last Taken:10/20/16 Time: 1000AM Albuterol Sulfate (Proair Hfa) 90 MCG HFA.AER.AD 2-4 Puff Inhale through mouth EVERY 4-6 HOURS NEEDED as needed for shortness of breath Qty = 1 Comments: NOT GIVEN IN HOSPITAL Start taking the following new medications: Guaifenesin (Guaifenesin ER) 600 MG TAB.ER.12H 600 Milligram ORAL EVERY 12 HOURS Qty = 10 No Refills Comments: Last Taken:10/20/16 Time: 1000AM Inhaler, Assist Devices (Microchamber) 1 EACH SPACER 1 Unit Inhale through mouth PER PROTOCOL Qty = 1 No Refills Comments: SPACER USED WITH SYMBICORT 10/20/16 @1000AM Prednisone (Prednisone) 10 MG TABLET 1 Tablet ORAL SEE INSTRUCTIONS Qty = 30 No Refills Instructions: TAKE 4 TABS ON 10/21- 10/23 TAKE 3 TABS ON 10/24- 10/26 TAKE 2 TABS ON 10/27- 10/29 TAKE 1 TAB ON 10/30-11/01, THEN STOP. Comments: NOT GIVEN IN HOSPITA; IV SOLUMEDOL 40MG GIVEN 10/20/16 @1000AM Copies To: JOSIAH HOUSTON APRN Attending MD Review Statement Documenting Attending: SAÚL VALENZUELA M.D Other Findings: I have reviewed the discharge summary.
== END 2016-10-20 16:20 | DRG 190 ==
LOC: ERH 21:28 → 2NB 22:51 → ERHI 22:51 → 2NB 22:51 → CANRESERV 23:58 → ENRESERV 23:58 → EDBEDREQ 10-17 01:19 → ENRESERV 10-17 01:32 → 2NB 10-17 02:41 → ENPENDDIS 10-20 16:07 → 2NB 10-20 16:20
PROVIDERS: Internal Medicine; Pediatrics; ADMIT Internal Medicine
DX: J44.1 Chronic obstructive pulmonary disease with (acute) exacerbation (principal); J96.01 Acute respiratory failure with hypoxia; J45.909 Unspecified asthma, uncomplicated; F17.200 Nicotine dependence, unspecified, uncomplicated; R00.0 Tachycardia, unspecified
CPT/HCPCS: 2NBSP; ERO; 82436; 87040; 87070; 93005; 93010; 94644; 96374; 96375; 99291; J0456; J0696; J1650; J2920; J2930; J3490; J7040

== ENCOUNTER 2017-11-07 20:11 | Inpatient (IN) | payer OTHER ==
[~2017-11-07] VITALS: Ht 157.5 cm; Wt 71.8 kg
[~2017-11-07 20:11] MED LIST changes: +GUAIFENESIN ER600 MG PO; +[UNRECOGNIZED DRUG - OTHER] INH
--- NOTE | 2017-11-07 20:31 | ED DYSPNEA/ASTHMA COMPLAINT ---
History of Present Illness General Chief Complaint: Dyspnea (COPD, CHF, Other) Stated Complaint: SOB Source: patient Exam Limitations: no limitations Vital Signs & Intake/Output Vital Signs & Intake/Output Vital Signs Date Time Temp Pulse Resp B/P B/P Pulse O2 O2 Flow FiO2 Mean Ox Delivery Rate 11/07 2306 121 11/07 2216 97.9 129 22 140/80 93 Nasal 3.0L Cannula 11/07 2100 Nasal 2.0L Cannula 11/07 2057 95 Nasal 2.0L Cannula 11/08 2055 95 Nasal 2.0L Cannula 11/07 2046 96 Nasal 2.0L Cannula 11/07 2021 97.3 137 22 154/98 90 Room Air 11/07 Room Air Allergies Coded Allergies: Penicillins (BREAKOUT IN RED BLOTCHES AND BUMPS ALL OVER BODY PER PT 10/16/16) codeine (Intermediate, ITCHING 10/16/16) Reconcile Medications Albuterol Sulfate (Proair Hfa) 90 MCG HFA.AER.AD 2-4 PUF INH Q4-6 PRN PRN shortness of breath Albuterol Sulfate 2.5 MG/3 ML VIAL.NEB 1 Vial INH/OBIE Q4P PRN wheezing/ shortness of breath Reason to Stop at ADM: [facility] Fluticasone/Salmeterol (Advair 250-50 Diskus) 1 EACH BLST.W.DEV 1 PUF INH BID COPD (Reported) Reason to Stop at ADM: [facility] Inhaler, Assist Devices (Microchamber) 1 EACH SPACER 1 UNIT INH PER PROTOCL SPACER DEVICE Ipratropium/Albuterol Sulfate (Combivent Respimat Inhal [place]) 4 GM MIST.INHAL 1 PUFF INH BID PRN SOB (Reported) Reason to Stop at ADM: [facility] Tiotropium [place] (Spiriva) 18 MCG CAP.W.DEV 1 CAP INH DAILY BREATHING PROBLEMS (Reported) Triage Note: PT TO ED C/O COPD EXACERBATION, STARTED YESTERDAY, WORSE TODAY. LAST ALBUTEROL NEBULIZER AT 7 PM WITH LITTLE RELIEF. PRODUCTIVE COUGHNOTED. PT SMOKES 10 CIGS/DAY "I HAVN'T HAD ONE SINCE THIS MORNING" HAS 21 MG NICOTINE PATCH TO LD. O2 SAT 90% ON RA IN TRIAGE. PURSED LIP BREATHING EXP WHEEZES ON AUSCULTATION. PT PLACED ON 2L NC, O2 SAT TO 94% DOES NOT USE O2 AT HOME. HR 137 IN TRIAGE Triage Nurses Notes Reviewed? yes Onset: Gradual Duration: day(s): Timing: recent history Severity: moderate, severe Activities at Onset: none Prior Episodes/Possible Cause: occasional episodes Associated Symptoms: cough, wheezing HPI: 62-year-old woman history of COPD, ongoing cigarette smoker, presents with 1-2 day history of cough wheezing or dyspnea at rest. She presents to the ED breathless unable to complete sentences without becoming short of breath. She notes no fever significant sputum lower extremity swelling or sign of congestive pain. Past History Travel History Traveled to [place] past 21 day No Medical History Any Pertinent Medical History? see below for history Neurological: NONE EENT: RIGHT EAR INFECTIONS Cardiovascular: NONE Respiratory: asthma, bronchitis, COPD Gastrointestinal: NONE Hepatic: hepatitis C, RESOLVED Renal: NONE Musculoskeletal: NONE Psychiatric: NONE Endocrine: NONE Blood Disorders: NONE Cancer(s): NONE DRYWALL HANGER HELPER/Reproductive: NONE History of MRSA: No History of VRE: No History of CDIFF: No Surgical History Surgical History: hysterectomy, LEFT MASTOID SURGERY Psychosocial History Who do you live with Significant Other Services at Home None What is your primary language Estonian Tobacco Use: Current Daily Use Daily Tobacco Use Amount/Type: => 5 Cigarettes daily ETOH Use: denies use Illicit Drug Use: denies illicit drug use Family History Hx Contributory? No Review of Systems Review of Systems Constitutional: Denies: see HPI. Physical Exam Physical Exam Respiratory: wheezing, respiratory distress Comments: Review of Systems - except as otherwise noted in HPI Review of Systems Constitutional:no symptoms. EENTM:no symptoms. Respiratory:no symptoms. Cardiovascular:no symptoms. GI:no symptoms. Genitourinary:no symptoms. Musculoskeletal:no symptoms. Skin:no symptoms. Neurological/Psychological:no symptoms. Hematologic/Endocrine:no symptoms. Immunologic/Allergic:no symptoms. All Other Systems: Reviewed and Negative Physical Exam Physical Exam General Appearance: well developed/nourished, no apparent distress Head: atraumatic, normal appearance Eyes: Bilateral: normal appearance. Ears, Nose, Throat: normal pharynx, normal ENT inspection Neck: normal inspection, supple, full range of motion Respiratory: bilateral wheezing, prolonged expiratory phase, breathless at rest Cardiovascular: regular rate/rhythm Gastrointestinal: normal bowel sounds, soft, non-tender, no organomegaly Back: normal inspection, normal range of motion Extremities: normal inspection, normal capillary refill, normal range of motion, no edema Neurologic/Psych: no motor/sensory deficits, awake, alert, oriented x 3 Skin: intact, normal color, warm/dry Core Measures ACS in differential dx? No CVA/TIA Diagnosis No Sepsis Present: No Sepsis Focused Exam Completed? No Progress Differential Diagnosis: asthma, bronchitis, CHF, COPD, pneumonia Plan of Care: Orders Procedure Date/time Status Patient Data 11/08 2307 Active TROPONIN LEVEL 11/07 2025 Complete LIPASE 11/07 2025 Complete HEPATIC FUNCTION PANEL 11/07 2025 Complete CBC WITHOUT DIFFERENTIAL 11/07 2025 Complete BASIC METABOLIC PANEL 11/07 2025 Complete AMYLASE 11/07 2025 Complete EKG 11/07 2017 Active Current Medications Sig/Mady Start time Last Medication Dose Stop Time Status Admin Magnesium Sulfate 1 GM ONCE ONE 11/07 2044 AC 11/07 (Mag Sulfate in D5) 11/08 Dextrose/Water 100 ML (D5W) Laboratory Tests 11/07/172119: Anion Gap 12, Estimated GFR > 60, BUN/Creatinine Ratio 20.0, Glucose 147 H, Calcium 9.7, Total Bilirubin 0.3, Direct Bilirubin 0.3, AST 16, ALT 20, Alkaline Phosphatase 89, Troponin I < 0.01, Total Protein 7.8, Albumin 4.3, Amylase 57, Lipase 55 11/07/172044: CBC w Diff NO MAN DIFF REQ, RBC 4.92, MCV 80.9 L, MCH 25.8 L, MCHC 31.9 L, RDW 15.5 H, MPV 7.8, Gran % 77.0 H, Lymphocytes % 17.3 L, Monocytes % 1.4 L, Eosinophils % 4.0, Basophils % 0.3, Absolute Granulocytes 11.3 H, Absolute Lymphocytes 2.6, Absolute Monocytes 0.2, Absolute Eosinophils 0.6, Absolute Basophils 0 11/07/172025: D-Dimer High Sensitivty Cancelled Diagnostic Imaging: Viewed by Me: Radiology Read. Discussed w/RAD: Radiology Read. CXR Impression: PATIENT: FABIAN RAMOS PRESENT AGE: 62 PATIENT ACCOUNT NO: [id number] : 57 LOCATION: [facility] ORDERING PHYSICIAN: Juan Carlos Momin MD SERVICE DATE: 11/07/17 EXAM TYPE: RAD - XRY-PORTABLE CHEST XRAY EXAMINATION: XR PORTABLE CHEST CLINICAL INFORMATION: Pain COMPARISON: 10/20/2016 TECHNIQUE: Portable AP view of the chest was obtained. FINDINGS: The cardiomediastinal silhouette is normal. No pulmonary venous congestion. The lungs are mildly hyperinflated. No focal pulmonary consolidation noted. A 0.6 cm small noncalcified pulmonary nodule in the left midlung is similar to prior exam. No pleural effusion or pneumothorax. The visualized bony thorax is unremarkable. IMPRESSION: Hyperinflated lungs without acute focal pulmonary consolidation. DICTATED BY: Eleanor Sullivan MD DATE/TIME DICTATED:11/07/172218 SPECIAL EVENTS ASSISTANT:KIMBER DATE/TIME TRANSCRIBED:11/07/172218 CONFIDENTIAL, DO NOT COPY WITHOUT APPROPRIATE AUTHORIZATION. <Electronically signed in Other Vendor System> SIGNED BY: Eleanor Sullivan MD 11/07/172226 Initial ED EKG: SINUS TACH, NO ACUTE CHANGES Departure Departure Disposition: STILL A PATIENT Condition: Stable Clinical Impression Primary Impression: COPD exacerbation Referrals: Adán Jorge APRN (PCP/Family) Departure Forms: Customer Survey General Discharge Information Admission Note Spoke With: Lashell Zuluaga MD Documentation of Exam: Documentation of any treatments & extenuating circumstances including Concerns Regarding Discharge (functional status, medication knowledge or non-compliance, living conditions, etc.) that warrant an admission rather than observation: pt with hypoxia, wheezing, requiring continuous nebs/magnesium sulfate... otherwise benign labs/cxr... merits admission for 02 support, abx, steroids. Critical Care Note Critical Care Note Critical Care Time: 30-74 min
[2017-11-07 20:54] LABS: ABSOLUTE BASOPHIL COUNT 0 /CUMM (0.0-0.2); ABSOLUTE EOSINOPHIL COUNT 0.6 /CUMM (0.0-0.7); ABSOLUTE GRANULOCYTE CT 11.3 /CUMM (1.4-6.5); ABSOLUTE LYMPH COUNT 2.6 /CUMM (1.2-3.4); ABSOLUTE MONOCYTE COUNT 0.2 /CUMM (0.10-0.60); BASOPHIL % 0.3 % (0.0-2.0); HEMATOCRIT 39.8 % (37-47); MEAN CORPUSCULAR HGB 25.8 PG (27.0-31.0); MEAN CORPUSCULAR HGB CONC 31.9 G/DL (33.0-37.0); MEAN CORPUSCULAR VOLUME 80.9 FL (81.0-99.0); MEAN PLATELET VOLUME 7.8 FL (7.4-10.4); PLATELET COUNT 459 /CUMM (130-400); RBC DISTRIBUTION WIDTH 15.5 % (11.5-14.5); RED BLOOD CELL CT 4.92 /CUMM (4.20-5.40); WHITE BLOOD CELL COUNT 14.7 /CUMM (4.8-10.8)
--- NOTE | 2017-11-07 22:27 | RADIOLOGY REPORT ---
EXAMINATION: XR PORTABLE CHEST CLINICAL INFORMATION: Pain COMPARISON: 10/20/2016 TECHNIQUE: Portable AP view of the chest was obtained. FINDINGS: The cardiomediastinal silhouette is normal. No pulmonary venous congestion. The lungs are mildly hyperinflated. No focal pulmonary consolidation noted. A 0.6 cm small noncalcified pulmonary nodule in the left midlung is similar to prior exam. No pleural effusion or pneumothorax. The visualized bony thorax is unremarkable. IMPRESSION: Hyperinflated lungs without acute focal pulmonary consolidation.
--- NOTE | 2017-11-07 23:12 | History & Physical ---
Lyndsey Butt 11/07/17 0963: General Information and HPI MD Statement: I have seen and personally examined FABIAN RAMOS and documented this H&P. The patient is a 62 year old F who presented with a patient stated chief complaint of [Dyspnea]. Source of Information: patient, old records Exam Limitations: no limitations History of Present Illness: Ms. Ramos is a 62yo F w/ PMH of COPD not on home O2/steroids, active smoker about 10 cigarettes/day, history of hepatitis C s/p Harvony and remained stable, s/p hysterectomy presented to ER complaining of COPD exacerbation with productive cough. Patient did not have any cigarettes starting this morning. Patient complaining of the symptoms including productive coughing, wheezing, dyspnea at rest, for the last 2 days. Patient was seeing Dr. Dorsey about 2 months ago and no med change was done. In 09/2017 patient saw her PCP Dr. Jorge for bronchitis and was given Z-blanca for 5 days, and resolved. She was last seen here in 2016 for COPD exacerbation and had required no hospitalization ever since until today. She was in [place] for 8 months and returned to [place] about 5 months ago, doing well, until yesterday morning that she started to have SOB/ increased wheezing with minimal exertion, and attributed to the sudden onset of hot weather. At baseline she could walk 5-10 minutes till becoming SOB, however she was worse than her baseline yesterday. She tried all nebulizers at home and inhalers, however with minimal relief. This morning she stopped smoking and used a nicotine patch. She felt her symptom was worsening today and she came to ER for further evaluation. During our clinical interaction, patient denied recent travel/sick contacts, fever/lightheadedness/diaphoresis/night sweat/weight change/Chest Pain/Abdominal pain/bowel movement or urinary abnormality, or other skin/musculoskeletal/ neurological/mood disorders, or dietary/appetite change. Allergies/Medications Allergies: Coded Allergies: Penicillins (BREAKOUT IN RED BLOTCHES AND BUMPS ALL OVER BODY PER PT 10/16/16) codeine (Intermediate, ITCHING 10/16/16) Past History Travel History Traveled to [place] past 21 day No Medical History Neurological: NONE EENT: RIGHT EAR INFECTIONS Cardiovascular: NONE Respiratory: asthma, bronchitis, COPD Gastrointestinal: NONE Hepatic: hepatitis C, RESOLVED Renal: NONE Musculoskeletal: NONE Psychiatric: NONE Endocrine: NONE Blood Disorders: NONE Cancer(s): NONE GUN STOCKER/Reproductive: NONE History of MRSA: No History of VRE: No History of CDIFF: No Surgical History Surgical History: hysterectomy, LEFT MASTOID SURGERY Past Family/Social History Psychosocial History Services at Home: None Smoking Status: Current Everyday Smoker ETOH Use: denies use Illicit Drug Use: denies illicit drug use Functional Ability ADLs Independent: dressing, eating, toileting, bathing. Ambulation: independent Review of Systems Review of Systems Constitutional: Reports: see HPI. Exam & Diagnostic Data Last 24 Hrs of Vital Signs/I&O Vital Signs Date Time Temp Pulse Resp B/P B/P Pulse O2 O2 Flow FiO2 Mean Ox Delivery Rate 11/07 2306 121 11/07 2216 97.9 129 22 140/80 93 Nasal 3.0L Cannula 11/07 2100 Nasal 2.0L Cannula 11/07 2057 95 Nasal 2.0L Cannula 11/08 2055 95 Nasal 2.0L Cannula 11/07 2046 96 Nasal 2.0L Cannula 11/07 2021 97.3 137 22 154/98 90 Room Air 11/08 2019 88 Room Air Physical Exam General Appearance Alert, Oriented X3, Cooperative, Moderate Distress Skin No Rashes, No Breakdown, No Significant Lesion Skin Temp/Moisture Exam: Warm/Dry Sepsis Skin Exam (color): Normal for Ethnicity HEENT Atraumatic, PERRLA, Mucous Membr. moist/pink Neck Supple, No JVD Cardiovascular tachycardia regular rhythm Lungs bilateral expiratory wheezing Abdomen Normal Bowel Sounds, Soft, No Tenderness Neurological Strength at 5/5 X4 Ext, Sensation Intact Extremities No Edema, Normal Pulses, No Tenderness/Swelling Last 24 Hrs of Labs/Les: Laboratory Tests 11/07/172119: Anion Gap 12, Estimated GFR > 60, BUN/Creatinine Ratio 20.0, Glucose 147 H, Calcium 9.7, Total Bilirubin 0.3, Direct Bilirubin 0.3, AST 16, ALT 20, Alkaline Phosphatase 89, Troponin I < 0.01, Total Protein 7.8, Albumin 4.3, Amylase 57, Lipase 55 11/07/172044: CBC w Diff NO MAN DIFF REQ, RBC 4.92, MCV 80.9 L, MCH 25.8 L, MCHC 31.9 L, RDW 15.5 H, MPV 7.8, Gran % 77.0 H, Lymphocytes % 17.3 L, Monocytes % 1.4 L, Eosinophils % 4.0, Basophils % 0.3, Absolute Granulocytes 11.3 H, Absolute Lymphocytes 2.6, Absolute Monocytes 0.2, Absolute Eosinophils 0.6, Absolute Basophils 0 11/07/172025: D-Dimer High Sensitivty Cancelled Assessment/Plan Assessment: On admission, Vitals: Stable afebrile, tachycardia 129, BP 140/90, 93% on the 3 L -CBC: Leukocytosis 14.7, H/H stable, granulocytes 77% -BMP: Unremarkable, glucose 147 -CXR: Hyperinflated lungs without acute focal pulmonary consolidation. -EKG: Sinus tachycardia without acute change -Interventions in ER: Maxillary 1, Solu-Medrol 1, TRC/nebulizer, ceftriaxone/ azithromycin 1 Problem list/Assessment/Hospital Course: #Acute hypoxic respiratory failure 2/2 COPD exacerbation #Tachycardia likely 2/2 resp distress #PMH of active smoker, history of hepatitis C, status post hysterectomy/ vasectomy - Admit to general medicine, vitals per protocol -Smoking cessaion w/ nicotin patch. -mucinex BID -If respiratory stress worsening, obtain ABG and consider BiPAP. DVT prophylaxis Pharm PPX + ALPS Regular Diet Full Code As Ranked By This Provider Problem List: 1. COPD exacerbation Core Measures/Misc (02/28) Acute Coronary Syndrome ACS Diagnosis: No Congestive Heart Failure Congestive Heart Failure Diagnosis No Cerebrovascular Accident CVA/TIA Diagnosis: No VTE (View Protocol) VTE Risk Factors Age>40 No Mechanical VTE Prophylaxis d/t N/A MechProphylax Ordered No VTE Pharm Prophylaxis d/t NA PharmProphylax ordered Sepsis (View protocol) Sepsis Present: No If YES complete Sepsis Event Note If YES complete Sepsis Event Note Jf Cha 11/07/17 2324: General Information and HPI Allergies/Medications Home Med list Albuterol Sulfate (Proair Hfa) 90 MCG HFA.AER.AD 2-4 PUF INH Q4-6 PRN PRN shortness of breath Albuterol Sulfate 2.5 MG/3 ML VIAL.NEB 1 Vial INH/OBIE Q4P PRN wheezing/ shortness of breath Reason to Stop at ADM: TRC NEBS Fluticasone/Salmeterol (Advair 500-50 Diskus) 500 MCG-50 MCG/DOSE BLST.W.DEV 1 PUF INH BID COPD (Reported) Inhaler, Assist Devices (Microchamber) 1 EACH SPACER 1 UNIT INH PER PROTOCL SPACER DEVICE Ipratropium/Albuterol Sulfate (Combivent Respimat Inhal [place]) 4 GM MIST.INHAL 1 PUFF INH BID PRN SOB (Reported) Reason to Stop at ADM: TRC NEBS Tiotropium [place] (Spiriva) 18 MCG CAP.W.DEV 1 CAP INH DAILY BREATHING PROBLEMS (Reported) Core Measures/Misc (02/28) Sepsis (View protocol) If YES complete Sepsis Event Note If YES complete Sepsis Event Note Resident Review Statement Resident Statement: examined this patient, discussed with automotive internet sales consultant, agreed with automotive internet sales consultant Other Findings: Mr Hood is a 62-year-old woman w/ PMHx of COPD, hepatitis C Genotype 1a ( tx' ed Selvin, last RNA check 2014), current 40 pk year smoking history came to the hospital with a chief concern of acute onset of dyspnea that started a few days ago, which became worse in the last 24 hours. She used albuterol nebulizer with no relief of symptoms. Also reported increasing productive cough. She was treated with antibiotics a month ago for bronchitis, and has been progressively getting worse since then. She did not have any fever, sick contacts, any viral illness, myalgias. Also reported worsening dyspnea upon exertion, which progressed to dyspnea at rest yesterday. No chest pain, palpitations or lightheadedness reported. She does not use any oxygen at home. She was not intubated in the past, or has been on chronic steroids. Last hospital admission from 10/16/2016-10/20/2016 for the treatment of acute hypoxic respiratory failure secondary to COPD exacerbation. When she came into the ED her oxygen saturations were 90% on room air, which improved to 94% on 2 L nasal cannula. At the time of admission-vitals- temperature 97.3, pulse rate 137, respiration 22, blood pressure 154/98, 90% on room air ( on 2 L supplemental oxygen oxygen saturation in the range of 95-96%). General Exam: AAOx3, mild distress, Skin: No rashes, no breakdown;HEENT: PERRLA, EOMI;Neck: Supple, No JVD ; No cervical lymphadenopathy;CVS: Reg Rate, Normal S1 ,S2, No MGR;Resp: decreased air entry b/l, wheezes b/l, no rales;Abdomen: Soft, No tenderness, Normal Bowel Sounds;Neuro: Normal Speech, Strength 5/5 b/l x 4 extremities, Sensation intact, CN III-XII NL, Reflexes 2+;Extremities: No cyanosis, no pedal edema. Pertinent Findings-W BC 14.7, hemoglobin 12.7, MCV 80.9 (microcytosis), platelets 459, sodium 140, potassium 4.2, renal function-BUN 12, creatinine 0.6. Liver chemistries-AST 16, ALT 20, total bilirubin 0.3. Troponin I-0.01. Chest x-ray revealed hyperinflated lungs without any focal pulmonary congestion or consolidation. Last pulmonary function test done on 04/02/2016 revealed severe obstructive lung disease with exercise-induced desaturation. Last stress test done on 05/07/2014 revealed no clinical or EKG evidence of dobutamine induced myocardial ischemia. Sees Dr. Haney. Etiology in this case for airflow obstruction is likely secondary to emphysema/ chronic bronchitis. Frequent exacerbations are associated w/ greater mortality, faster decline in lung function. Etiology for acute exacerbation is likely viral infection/bacterial infection (Haemophilus, Moraxella, Streptococcus)/pollutants /season. Differential diagnosis considered at the time of admission-CHF, pneumonia, restrictive lung disease, pleural effusions, acute coronary syndrome. As per mMRC dyspnea scale, the patient falls and Gold criteria-C. Problem list: #1 acute exacerbation of COPD #2 history of asthma #3 history of hepatitis C #4 class II obesity #5 current smoker #6 leukocytosis-likely reactive #7 thrombocytosis-likely reactive #8 microcytosis. Plan: -Advised the patient to general medicine service. -C BC to monitor for infection -Arterial blood gas, if indicated -Check proBNP to differentiate between COPD and CHF, if needed. -Lower respiratory cultures -supplemental oxygen -Maintain oxygen saturation in between 90 to 92% -monitor for CO2 narcosis, monitor for AMS, clinical tiring -Bronchodilator therapy with albuterol and ipratropium -Start iv predniosne 40 Q8 -Azithromycin 500 mg daily. -Consider starting broad-spectrum antibiotics, if the pt has fever or increased sputum production or worsening dyspnea -Smoking cessation counseling, vaccination status, avoid triggers. -check iron studies. Housekeeping checklist #1 DVT prophylaxis-subcutaneous heparin. #2 GI prophylaxis-Protonix if needed. #3 medication reconciliation-completed. #4 CODE STATUS-full code. #5 consults-Pulm, if needed. Zan CORNELL, [facility] 11/08/17 0428: Core Measures/Misc (02/28) Sepsis (View protocol) If YES complete Sepsis Event Note If YES complete Sepsis Event Note Attending MD Review Statement Attending Statement Attending MD Statement: examined this patient, discuss w/resident/PA/LIVE GAMES DEALER, agreed w/resident/PA/LIVE GAMES DEALER, reviewed images, amended to note Attending Assessment/Plan: 62 yo F smoker with h/o COPD, Hep C s/p Selvin, last treated for a bronchitis about 1 month ago, is here for worsening dyspnea, nonproductive cough and wheezing over the past 24 hours prior to admission. Her symptoms were not relieved with neb treatments. She reports that her COPD exacerbates during weather changes and especially when it starts getting 'warm/hot'. No sick contacts, recent travel. She did not get flu vaccine. She has never been intubated for COPD. On ER arrival, she was not able to complete a sentence. Vitals: afebrile, tachycardic to 100-120's, BP 148/82, sats 88% RA --> 95% on 2L. Exam: AAO, in mild respiratory distress, able to speak in short sentences, Chest b/l prolonged expiratory wheeze with reduced air entry, Heart S1S2 tachycardic. Labs: WBC 14.7, eosinophils 4.0, trop neg, glucose 147. CXR: hyperinflated lungs without acute focal pulmonary consolidation. EKG: sinus tachycardia @ 135, no acute changes. 0.6 cm noncalcified pulmonary nodule in left midlung. Assessment and plan: 1. Acute hypoxic respiratory failure 2. Acute bronchitis with exacerbation of COPD 3. Smoker 4. Leukocytosis - Admit to General medicine - TRC nebs scheduled and PRN albuterol and ipratropium - Sputum culture if any - IV solumedrol 40 Q8 - IV azithro for 5 days - Add mucinex BID - Pulm consult Dr. Davidson - If respiratory status worsens, obtain ABG and consider Bipap - Check urine tox screen - Smoking cessation, nicotine patch - Continue advair, resume spiriva upon discharge DVT ppx Lovenox. Full code.
[2017-11-07] MEDS ORDERED: ADVAIR 500-501 EACH INH (23:49)
[2017-11-08 02:46] VITALS: BP 148/82
--- NOTE | 2017-11-08 04:29 | Admission Certification ---
Admission Certification Certification Statement - As attending physician, I certify that at the time of - admission, based on clinical presentation, severity of - symptoms, need for further diagnostic testing and - therapeutic interventions, and risk of adverse outcomes - without in-hospital treatment, in my clinical assessment, - this patient requires an acute hospital stay for a minimum - of two nights or longer. I have also considered psychsocial - factors such as support system, advanced age, financial - issues, cognitive issues, and failed out-patient treatments, - past re-admission history, safety of patient, and lack of - compliance as applicable. Specific rationale supporting this admission is: Acute hypoxic respiratory failure, COPD exacerbation.
[2017-11-08 06:00] VITALS: BP 136/88
--- NOTE | 2017-11-08 09:36 | PN- Housestaff ---
See Addendum Subjective Follow-up For: Acute hypoxemic respiratory failure Acute bronchitis COPD exacerbation Subjective: Feels better than yesterday. Still wheezy and short of breath. No fevers or chills overnight. Palpitations when getting out of bed. Other systems reviewed and negative except as above. Review of Systems Constitutional: Reports: see HPI. Objective Last 24 Hrs of Vital Signs/I&O Vital Signs Date Time Temp Pulse Resp B/P B/P Pulse O2 O2 Flow FiO2 Mean Ox Delivery Rate 11/08 0919 Nasal 2.0L Cannula 11/08 0829 95 Nasal 2.0L Cannula 11/08 0800 93 Nasal 2.0L Cannula 11/08 0600 98.0 100 22 136/88 94 Nasal 2.0L Cannula 11/08 0246 98.1 106 24 148/82 95 Nasal 2.0L Cannula 11/08 0230 95 Nasal 2.0L Cannula 11/08 0200 96 Nasal 2.0L Cannula 11/08 0135 98.2 118 21 145/82 96 Nasal 3.0L Cannula 11/08 0047 123 11/07 2306 121 11/07 2217 97.9 129 22 140/80 93 Nasal 3.0L Cannula 11/07 210 Nasal 2.0L Cannula 11/07 2057 95 Nasal 2.0L Cannula 11/08 2055 95 Nasal 2.0L Cannula 11/07 2046 96 Nasal 2.0L Cannula 11/07 2021 97.3 137 22 154/98 90 Room Air 11/07 2020 88 Room Air Intake & Output 11/08 1600 11/08 0800 11/08 0000 Intake Total 400 Output Total 400 200 Balance 0 -200 Intake, Oral 400 Output, Urine 400 200 Patient 160 lb 160 lb Weight Weight Bed scale Reported by Patient Measurement Method Physical Exam General Appearance: Alert, Oriented X3, Cooperative Cardiovascular: Regular Rate, Normal S1, Normal S2 Lungs: Diffuse bilateral wheezes Abdomen: Normal Bowel Sounds, Soft, No Tenderness Extremities: No Clubbing, No Cyanosis, No Edema Current Medications: Current Medications Sig/Mady Start time Last Medication Dose Route Stop Time Status Admin Acetaminophen 650 MG Q8P PRN 11/08 0430 AC PO Albuterol Sulfate 3 ML EVERY 4 HRS/AWAKE 11/08 1200 AC 11/08 INH 1143 Albuterol Sulfate 3 ML Q4H PRN 11/08 0215 DC 11/08 INH 0802 Albuterol Sulfate 2 PUF Q4-6 PRN PRN 11/07 2345 AC INH Albuterol Sulfate 3 ML ONCE ONE 11/07 2044 DC 11/07 INH 11/07 Albuterol Sulfate 3 ML ONCE ONE 11/07 204 DC 11/07 INH 11/07 Albuterol Sulfate 3 ML ONCE ONE 11/07 2044 DC 11/07 INH 11/07 Albuterol Sulfate 3 ML ONCE ONE 11/07 2044 DC 11/07 INH 11/07 Albuterol Sulfate 3 ML ONCE ONE 11/07 204 DC 11/07 INH 11/07 Albuterol Sulfate 3 ML ONCE ONE 11/07 2044 DC 11/07 INH 11/07 Azithromycin 500 MG 1900 11/08 1900 AC Sodium Chloride 250 ML IV Azithromycin 500 MG ONCE ONE 11/07 2044 DC 11/07 Sodium Chloride 250 ML IV 11/07 2144 2153 Budesonide/ 2 PUF BID 11/07 0200 AC 11/08 Formoterol Fumarate INH 0845 Ceftriaxone Sodium 0 .STK-MED ONE 11/07 2058 DC .ROUTE Ceftriaxone Sodium 1,000 MG ONCE ONE 11/07 2044 DC 11/07 IV 11/07 Heparin Sodium 5,000 UNIT Q8 11/08 0600 AC 11/08 (Porcine) SC 0530 Ipratropium [place] 2.5 ML EVERY 4 HRS/AWAKE 11/08 1200 AC 11/08 INH 1143 Ipratropium [place] 2.5 ML Q5 11/08 0800 DC 11/08 INH 0802 Ipratropium [place] 2.5 ML ONCE ONE 11/07 204 DC 11/07 INH 11/07 Magnesium Sulfate 1 GM ONCE ONE 11/07 2044 DC 11/07 Dextrose/Water 100 ML IV 11/08 Methylprednisolone 40 MG Q8 11/08 0600 AC 11/08 IV 11/11 220 0530 Methylprednisolone 0 .STK-MED ONE 11/07 2057 DC .ROUTE Methylprednisolone 125 MG ONCE ONE 11/07 2030 DC 11/07 IV 11/07 Nicotine 21 MG DAILY 11/08 0900 AC 11/08 TOP 0845 Sodium Chloride 1,000 ML ONCE ONE 11/07 2345 DC 11/07 IV 11/07 2346 2300 Last 24 Hrs of Lab/Les Results Last 24 Hrs of Labs/Mics: Laboratory Tests 11/08/17 0620: Urine Opiates Screen < 100, Methadone Screen < 40, Barbiturate Screen < 60, Ur Phencyclidine Scrn < 6.00, Amphetamines Screen < 100, U Benzodiazepines Scrn < 85, Urine Cocaine Screen < 50, Urine Cannabis Screen < 5.00 11/07/172119: Anion Gap 12, Estimated GFR > 60, BUN/Creatinine Ratio 20.0, Glucose 147 H, Calcium 9.7, Iron 39, TIBC 423, Ferritin 14.0, Total Bilirubin 0.3, Direct Bilirubin 0.3, AST 16, ALT 20, Alkaline Phosphatase 89, Troponin I < 0.01, Total Protein 7.8, Albumin 4.3, Amylase 57, Lipase 55 11/07/172044: CBC w Diff NO MAN DIFF REQ, RBC 4.92, MCV 80.9 L, MCH 25.8 L, MCHC 31.9 L, RDW 15.5 H, MPV 7.8, Gran % 77.0 H, Lymphocytes % 17.3 L, Monocytes % 1.4 L, Eosinophils % 4.0, Basophils % 0.3, Absolute Granulocytes 11.3 H, Absolute Lymphocytes 2.6, Absolute Monocytes 0.2, Absolute Eosinophils 0.6, Absolute Basophils 0 11/07/172025: D-Dimer High Sensitivty Cancelled Assessment/Plan Assessment: 62-year-old woman smoker with history of COPD, hepatitis C, presented to [facility] ED on 11/07/2017 with worsening dyspnea, nonproductive cough and wheezing 24 hours prior to admission. Wells for PE. 1.5, extremely low probability. 1. Acute hypoxemic respiratory failure, COPD exacerbation. Notes some improvement in her respiratory symptoms. But continues to have diffuse wheezing. IV Solu-Medrol 40 mg every 12. Continue azithromycin for possible bronchitis. Mucinex twice daily. Continue Advair. TRC nebs. Supplemental oxygen, low saturations >90-92%. Full code. Regular diet. Heparin for DVT prophylaxis. Problem List: 1. COPD exacerbation Pain Ratin Pain Location: None Pain Goal: Remain pain free Pain Plan: PRN Tomorrow's Labs & Rationales: CBC and BEP
[2017-11-08 14:48] LABS: ABSOLUTE BASOPHIL COUNT 0 /CUMM (0.0-0.2); ABSOLUTE EOSINOPHIL COUNT 0 /CUMM (0.0-0.7); ABSOLUTE GRANULOCYTE CT 14.6 /CUMM (1.4-6.5); ABSOLUTE LYMPH COUNT 1.9 /CUMM (1.2-3.4); ABSOLUTE MONOCYTE COUNT 0.6 /CUMM (0.10-0.60); BASOPHIL % 0.2 % (0.0-2.0); EOSINOPHIL % 0 % (0-5); HEMATOCRIT 37.6 % (37-47); MEAN CORPUSCULAR HGB 25.9 PG (27.0-31.0); MEAN CORPUSCULAR HGB CONC 32.1 G/DL (33.0-37.0); MEAN CORPUSCULAR VOLUME 80.8 FL (81.0-99.0); MEAN PLATELET VOLUME 8.6 FL (7.4-10.4); PLATELET COUNT 362 /CUMM (130-400); RBC DISTRIBUTION WIDTH 15.3 % (11.5-14.5); RED BLOOD CELL CT 4.66 /CUMM (4.20-5.40); WHITE BLOOD CELL COUNT 17.2 /CUMM (4.8-10.8)
[2017-11-08 14:58] VITALS: BP 130/80
[2017-11-08 21:55] VITALS: BP 120/80
[2017-11-08 21:59] VITALS: BP 120/80
[2017-11-09 07:11] VITALS: BP 126/72
--- NOTE | 2017-11-09 08:16 | Cons- Pulmonary ---
General Information and HPI Consulting Request Date of Consult: 11/09/17 Requested By: Daljit Reason for Consult: Exacerbation of COPD History of Present Illness: Patient is a 62-year-old with COPD actively smoking admitted with exacerbation. She had been treated as an outpatient in September but had recurrent symptoms coincident with increasing heat and humidity admitted on Wednesday with increasing cough wheezing shortness of breath and acute hypoxic respiratory failure now requiring low-flow oxygen. Allergies/Medications Allergies: Coded Allergies: Penicillins (BREAKOUT IN RED BLOTCHES AND BUMPS ALL OVER BODY PER PT 10/16/16) codeine (Intermediate, ITCHING 10/16/16) Home Med List: Albuterol Sulfate (Proair Hfa) 90 MCG HFA.AER.AD 2-4 PUF INH Q4-6 PRN PRN shortness of breath Albuterol Sulfate 2.5 MG/3 ML VIAL.NEB 1 Vial INH/OBIE Q4P PRN wheezing/ shortness of breath Reason to Stop at ADM: [facility] Fluticasone/Salmeterol (Advair 500-50 Diskus) 500 MCG-50 MCG/DOSE BLST.W.DEV 1 PUF INH BID COPD (Reported) Inhaler, Assist Devices (Microchamber) 1 EACH SPACER 1 UNIT INH PER PROTOCL SPACER DEVICE Ipratropium/Albuterol Sulfate (Combivent Respimat Inhal Oxbow) 4 GM MIST.INHAL 1 PUFF INH BID PRN SOB (Reported) Reason to Stop at ADM: [facility] Tiotropium [place] (Spiriva) 18 MCG CAP.W.DEV 1 CAP INH DAILY BREATHING PROBLEMS (Reported) Review of Systems Review of Systems Constitutional: Denies: chills, fever. Cardiovascular: Denies: chest pain, edema. Respiratory: Reports: cough, short of breath, wheezing. Denies: hemoptysis, sputum production. GI: Denies: abdominal pain, diarrhea, melena. Past History Travel History Traveled to [place] past 21 day No Medical History Blood Transfusion Hx: Yes Neurological: NONE EENT: RIGHT EAR INFECTIONS Cardiovascular: NONE Respiratory: asthma, bronchitis, COPD Gastrointestinal: NONE Hepatic: hepatitis C, RESOLVED Renal: NONE Musculoskeletal: NONE Psychiatric: NONE Endocrine: NONE Blood Disorders: NONE Cancer(s): NONE EMERGENCY TELECOMMUNICATIONS DISPATCHER/Reproductive: NONE Surgical History Surgical History: hysterectomy, LEFT MASTOID SURGERY Psychosocial History Where Do You Live? Home Services at Home: None Smoking Status: Current Everyday Smoker ETOH Use: denies use Illicit Drug Use: denies illicit drug use Functional Ability ADLs Independent: dressing, eating, toileting, bathing. Ambulation: independent Exam & Diagnostic Data Last 24 Hrs of Vital Signs/I&O Vital Signs Date Time Temp Pulse Resp B/P B/P Pulse O2 O2 Flow FiO2 Mean Ox Delivery Rate 11/09 0711 98.2 90 18 126/72 94 Nasal 2.0L Cannula 11/09 0000 95 Nasal 2.0L Cannula 11/08 2253 Nasal 100% Cannula 11/08 2159 98.2 118 20 120/80 95 11/08 1650 97 Nasal 2.0L Cannula 11/08 1600 93 Nasal 2.0L Cannula 11/08 1458 98.1 125 21 130/80 93 Nasal Cannula 11/08 0919 Nasal 2.0L Cannula 11/08 0829 95 Nasal 2.0L Cannula Intake & Output 11/09 1600 11/09 0800 11/09 0000 Intake Total 650 Output Total 600 Balance 50 Intake, IV 250 Intake, Oral 400 Number 0 Bowel Movements Output, Urine 600 Patient 161 lb Weight Weight Bed scale Measurement Method Oxygen saturation 2 L 94% HEENT exam shows no adenopathy exam for chest shows diffuse expiratory wheezing cardiac exam shows regular S1 and S2 abdomen is soft nontender extremities without edema Last 48 Hrs of Labs/Les: Laboratory Tests 11/08/17 1418: Anion Gap 12, Estimated GFR > 60, BUN/Creatinine Ratio 17.1, CBC w Diff NO MAN DIFF REQ, RBC 4.66, MCV 80.8 L, MCH 25.9 L, MCHC 32.1 L, RDW 15.3 H, MPV 8.6 , Gran % 85.0 H, Lymphocytes % 11.1 L, Monocytes % 3.7, Eosinophils % 0, Basophils % 0.2, Absolute Granulocytes 14.6 H, Absolute Lymphocytes 1.9, Absolute Monocytes 0.6, Absolute Eosinophils 0, Absolute Basophils 0 11/08/17 0620: Urine Opiates Screen < 100, Methadone Screen < 40, Barbiturate Screen < 60, Ur Phencyclidine Scrn < 6.00, Amphetamines Screen < 100, U Benzodiazepines Scrn < 85, Urine Cocaine Screen < 50, Urine Cannabis Screen < 5.00 11/07/17 2120: Anion Gap 12, Estimated GFR > 60, BUN/Creatinine Ratio 20.0, Glucose 147 H, Calcium 9.7, Iron 39, TIBC 423, Ferritin 14.0, Total Bilirubin 0.3, Direct Bilirubin 0.3, AST 16, ALT 20, Alkaline Phosphatase 89, Troponin I < 0.01, Total Protein 7.8, Albumin 4.3, Amylase 57, Lipase 55 11/07/172044: CBC w Diff NO MAN DIFF REQ, RBC 4.92, MCV 80.9 L, MCH 25.8 L, MCHC 31.9 L, RDW 15.5 H, MPV 7.8, Gran % 77.0 H, Lymphocytes % 17.3 L, Monocytes % 1.4 L, Eosinophils % 4.0, Basophils % 0.3, Absolute Granulocytes 11.3 H, Absolute Lymphocytes 2.6, Absolute Monocytes 0.2, Absolute Eosinophils 0.6, Absolute Basophils 0 11/07/172025: D-Dimer High Sensitivty Cancelled Assessment/Plan Impression/Plan: 8-year-old woman with significant COPD admitted with exacerbation in the setting of tobacco dependence disorder and acute hypoxic respiratory failure now requiring low-flow oxygen with evidence of bronchospasm. Recommendations: Sputum C&S. Taper FiO2 his saturations allow. Continue IV steroids and nebulized bronchodilators. Patient was counseled regarding the need for smoking cessation. Patient will need outpatient CT scan for follow-up pulmonary nodules Consult Acknowledgment - Thank you for your consult request.
--- NOTE | 2017-11-09 08:33 | PN- Housestaff ---
See Addendum Subjective Follow-up For: Acute hypoxemic respiratory failure Acute bronchitis COPD exacerbation Subjective: Feels better than yesterday. Still wheezy and short of breath. No fevers or chills overnight. Other systems reviewed and negative except as above. Review of Systems Constitutional: Reports: see HPI. Objective Last 24 Hrs of Vital Signs/I&O Vital Signs Date Time Temp Pulse Resp B/P B/P Pulse O2 O2 Flow FiO2 Mean Ox Delivery Rate 11/09 0711 98.2 90 18 126/72 94 Nasal 2.0L Cannula 11/09 0000 95 Nasal 2.0L Cannula 11/08 2253 Nasal 100% Cannula 11/08 2159 98.2 118 20 120/80 95 11/08 1650 97 Nasal 2.0L Cannula 11/08 1600 93 Nasal 2.0L Cannula 11/08 1458 98.1 125 21 130/80 93 Nasal Cannula 11/08 0919 Nasal 2.0L Cannula Intake & Output 11/09 1600 11/09 0800 11/09 0000 Intake Total 650 Output Total 600 Balance 50 Intake, IV 250 Intake, Oral 400 Number 0 Bowel Movements Output, Urine 600 Patient 161 lb Weight Weight Bed scale Measurement Method Physical Exam General Appearance: Alert, Oriented X3, Cooperative Cardiovascular: Regular Rate, Normal S1, Normal S2 Lungs: Diffuse expiratory wheezes Abdomen: Normal Bowel Sounds, Soft Extremities: No Clubbing, No Cyanosis, No Edema Current Medications: Current Medications Sig/Mady Start time Last Medication Dose Route Stop Time Status Admin Acetaminophen 650 MG Q8P PRN 11/08 0430 AC 11/08 PO 1614 Albuterol Sulfate 3 ML EVERY 4 HRS/AWAKE 11/08 1200 AC 11/09 INH 0819 Albuterol Sulfate 3 ML Q4H PRN 11/08 0215 DC 11/08 INH 0802 Albuterol Sulfate 2 PUF Q4-6 PRN PRN 11/07 2345 AC INH Azithromycin 500 MG 1900 11/08 1900 AC 11/08 Sodium Chloride 250 ML IV 1833 Budesonide/ 2 PUF BID 11/07 0200 AC 11/08 Formoterol Fumarate INH 2114 Guaifenesin 600 MG Q12 11/09 0900 AC PO Heparin Sodium 5,000 UNIT Q8 11/08 0600 AC 11/09 (Porcine) SC 0604 Ipratropium [place] 2.5 ML EVERY 4 HRS/AWAKE 11/08 1200 AC 11/09 INH 0819 Ipratropium [place] 2.5 ML Q5 11/08 0800 DC 11/08 INH 0802 Methylprednisolone 40 MG Q8 11/08 0600 AC 11/09 IV 11/11 2201 0604 Nicotine 21 MG DAILY 11/08 0900 11/08 TOP 0845 Last 24 Hrs of Lab/Les Results Last 24 Hrs of Labs/Mics: Laboratory Tests 11/08/17 1418: Anion Gap 12, Estimated GFR > 60, BUN/Creatinine Ratio 17.1, CBC w Diff NO MAN DIFF REQ, RBC 4.66, MCV 80.8 L, MCH 25.9 L, MCHC 32.1 L, RDW 15.3 H, MPV 8.6 , Gran % 85.0 H, Lymphocytes % 11.1 L, Monocytes % 3.7, Eosinophils % 0, Basophils % 0.2, Absolute Granulocytes 14.6 H, Absolute Lymphocytes 1.9, Absolute Monocytes 0.6, Absolute Eosinophils 0, Absolute Basophils 0 Assessment/Plan Assessment: 62-year-old woman smoker with history of COPD, hepatitis C, presented to [facility] ED on 11/07/2017 with worsening dyspnea, nonproductive cough and wheezing 24 hours prior to admission. Wells for PE. 1.5, low probability for PE in the setting of more probable competing diagnosis. 1. Acute hypoxemic respiratory failure, COPD exacerbation. Notes some improvement in her respiratory symptoms. But continues to have diffuse wheezing. IV Solu-Medrol 40 mg every 12. Continue azithromycin for possible bronchitis. Mucinex twice daily. Await pulmonary recommendations. Encourage ambulation. Out of bed to chair. Encouraged use of incentive spirometer. Continue Advair. TRC nebs. Supplemental oxygen, low saturations >90-92%. Full code. Regular diet. Heparin for DVT prophylaxis. Problem List: 1. Bronchitis Pain Ratin Pain Location: None Pain Goal: Remain pain free Pain Plan: PRN Tomorrow's Labs & Rationales: Not needed
[2017-11-09 15:11] VITALS: BP 130/80
[2017-11-09 22:51] VITALS: BP 128/70
[2017-11-10 06:30] VITALS: BP 132/76
[2017-11-10] MEDS ORDERED: NICOTINE PATCH1 EAC3 TOP (07:34)
[2017-11-10] MEDS ORDERED: GUAIFENESIN ER600 MG PO (07:34)
[2017-11-10] MEDS ORDERED: AZITHROMYCIN500 M3 PO (07:34)
--- NOTE | 2017-11-10 07:35 | Patient Discharge Instructions ---
Discharge Instructions General Discharge Information You were seen/treated for: COPD exacerbation. Watch for these problems: Worsening breathing symptoms Shortness of breath Special Instructions: Please follow-up with primary care physician as an outpatient in 1-2 weeks. Please follow-up with tumbler operator as an outpatient in 1-2 weeks. Diet Continue normal diet: Yes Activity Full Activity/No Limits: Yes Acute Coronary Syndrome Inclusion Criteria At DC or during hospital stay patient has or had the following: ACS DIAGNOSIS No Discharge Core Measures Meds if any: Prescribed or Continued at Discharge Meds if any: NOT Prescribed or Continued at Discharge Congestive Heart Failure Inclusion Criteria At DC or during hospital stay patient has or had the following: CHF DIAGNOSIS No Discharge Core Measures Meds if any: Prescribed or Continued at Discharge Meds if any: NOT Prescribed or Continued at Discharge Cerebrovascular accident Inclusion Criteria At DC or during hospital stay patient has or had the following: CVA/TIA Diagnosis No Discharge Core Measures Meds if any: Prescribed or Continued at Discharge Meds if any: NOT Prescribed or Continued at Discharge Venous thromboembolism Inclusion Criteria VTE Diagnosis No VTE Type NONE VTE Confirmed by (Test) NONE Discharge Core Measures - Per Current guidelines, there needs to be overlap - treatment for the first 5 days of Warfarin therapy. - If discharged on Warfarin prior to 5 days of - overlap therapy, the patient will need to be - assessed for post discharge needs including - *Post discharge parental anticoagulation - *Warfarin and/or parental anticoagulation education - *Follow up date to check INR post discharge At least 5 days overlap therapy as Inpatient No Meds if any: Prescribed or Continued at Discharge Note: Overlap Therapy is Warfarin and Anticoagulant Meds if any: NOT Prescribed or Continued at Discharge
--- NOTE | 2017-11-10 08:23 | PN- Housestaff ---
See Addendum Subjective Follow-up For: Acute hypoxemic respiratory failure Acute bronchitis COPD exacerbation Subjective: Feels same as yesterday. Still wheezy and short of breath. Gets winded on ambulation. No fevers or chills overnight. Other systems reviewed and negative except as above. Review of Systems Constitutional: Reports: see HPI. Objective Last 24 Hrs of Vital Signs/I&O Vital Signs Date Time Temp Pulse Resp B/P B/P Pulse O2 O2 Flow FiO2 Mean Ox Delivery Rate 11/10 629 97.6 78 20 132/76 93 Room Air 11/10 0000 93 Room Air 11/09 2251 97.9 100 20 128/70 93 Room Air 11/09 1635 94 Room Air 11/09 1511 98.2 112 20 130/80 94 Intake & Output 11/10 1600 11/10 0800 11/10 0000 Intake Total 180 200 Output Total Balance 180 200 Intake, Oral 180 200 Patient 158 lb Weight Physical Exam General Appearance: Alert, Oriented X3, Cooperative Cardiovascular: Regular Rate, Normal S1, Normal S2 Lungs: Diffuse expiratory wheezes bilaterally. Abdomen: Normal Bowel Sounds, Soft, No Tenderness Extremities: No Clubbing, No Cyanosis, No Edema Current Medications: Current Medications Sig/Mady Start time Last Medication Dose Route Stop Time Status Admin Acetaminophen 650 MG Q8P PRN 11/08 0430 AC 11/08 PO 1614 Albuterol Sulfate 3 ML EVERY 4 HRS/AWAKE 11/08 1200 AC 11/09 INH 2049 Albuterol Sulfate 2 PUF Q4-6 PRN PRN 11/07 2345 AC INH Azithromycin 500 MG DAILY 11/09 09 AC 11/09 PO 11/11 0901 0932 Azithromycin 500 MG 1900 11/08 1900 DC 11/08 Sodium Chloride 250 ML IV 1833 Budesonide/ 2 PUF BID 11/07 0200 AC 11/09 Formoterol Fumarate INH 2000 Guaifenesin 600 MG Q12 11/09 09 AC 11/09 PO 195 Heparin Sodium 5,000 UNIT Q8 11/08 06 AC 11/10 (Porcine) SC 0610 Ipratropium [place] 2.5 ML EVERY 4 HRS/AWAKE 11/08 1200 AC 11/09 INH 205 Methylprednisolone 40 MG Q12 11/09 0900 AC 11/09 IV 11/12 Methylprednisolone 40 MG Q8 11/08 0600 DC 11/09 IV 11/11 2201 0604 Nicotine 21 MG DAILY 11/08 09 AC 11/09 TOP 0930 Polyethylene Glycol 17 GM DAILY 11/10 899 UNVr PO Senna/Docusate Sodium 1 TAB BID 11/10 899 UNVr PO Assessment/Plan Assessment: 62-year-old woman smoker with history of COPD, hepatitis C, presented to [facility] ED on 11/07/2017 with worsening dyspnea, nonproductive cough and wheezing 24 hours prior to admission. 1. Acute hypoxemic respiratory failure, COPD exacerbation. No improvement in her respiratory symptoms compared to yesterday. Continues to have diffuse wheezing. IV Solu-Medrol 40 mg every 12. Continue azithromycin for possible bronchitis. Mucinex twice daily. On RA now, but short of breath on ambulation. Please check ambulatory O2 sats. Encourage ambulation. Out of bed to chair. Encouraged use of incentive spirometer. Continue Advair. TRC nebs. Supplemental oxygen, maintain saturations >90-92%. Full code. Regular diet. Heparin for DVT prophylaxis. Problem List: 1. COPD (chronic obstructive pulmonary disease) Pain Ratin Pain Location: None Pain Goal: Remain pain free Pain Plan: PRN Tomorrow's Labs & Rationales: Not needed
--- NOTE | 2017-11-10 08:39 | PN- Pulmonary ---
Subjective HPI/Critical Care Issues: Patient is now on room air but continues to have significant shortness of breath and persistent bronchospasm Objective Current Medications: Current Medications Sig/Mady Start time Last Medication Dose Route Stop Time Status Admin Acetaminophen 650 MG Q8P PRN 11/08 0430 AC 11/08 PO 1614 Albuterol Sulfate 3 ML EVERY 4 HRS/AWAKE 11/08 1200 AC 11/09 INH 2050 Albuterol Sulfate 2 PUF Q4-6 PRN PRN 11/07 2345 AC INH Azithromycin 500 MG DAILY 11/09 0900 AC 11/09 PO 11/11 0901 0932 Budesonide/ 2 PUF BID 11/07 0200 AC 11/09 Formoterol Fumarate INH 2000 Guaifenesin 600 MG Q12 11/09 09 AC 11/09 PO 195 Heparin Sodium 5,000 UNIT Q8 11/08 06 AC 11/10 (Porcine) SC 0610 Ipratropium [place] 2.5 ML EVERY 4 HRS/AWAKE 11/08 1200 AC 11/09 INH 2049 Methylprednisolone 40 MG Q12 11/09 0900 AC 11/09 IV 11/12 Nicotine 21 MG DAILY 11/08 0900 AC 11/09 TOP 0930 Polyethylene Glycol 17 GM DAILY 11/10 0900 AC PO Senna/Docusate Sodium 1 TAB BID 11/10 0900 AC PO Vital Signs & I&O Last 24 Hrs of Vitals and I&O: Vital Signs Date Time Temp Pulse Resp B/P B/P Pulse O2 O2 Flow FiO2 Mean Ox Delivery Rate 11/10 0630 97.6 78 20 132/76 93 Room Air 11/10 0000 93 Room Air 11/09 2251 97.9 100 20 128/70 93 Room Air 11/09 1635 94 Room Air 11/09 1511 98.2 112 20 130/80 94 Intake & Output 11/10 1600 11/10 0800 11/10 0000 Intake Total 180 200 Output Total Balance 180 200 Intake, Oral 180 200 Patient 158 lb Weight Oxygen saturation 93% exam for chest shows bilateral diffuse expiratory wheezing cardiac exam shows regular S1 and S2 without murmurs Impression/Plan Impression/Plan Impression/Plan: 62-year-old actively smoking admitted with exacerbation of COPD and persistent bronchospasm Recommendations: Sputum C&S. Taper FiO2 his saturations allow. Continue IV steroids and nebulized bronchodilators. Patient was counseled regarding the need for smoking cessation. Patient will need outpatient CT scan for follow-up pulmonary nodules continue IV steroids with persistent bronchospasm
[2017-11-10 14:48] VITALS: BP 126/68
[2017-11-10 22:00] VITALS: BP 132/70
[2017-11-11 06:53] VITALS: BP 128/68
--- NOTE | 2017-11-11 08:35 | PN- Housestaff ---
Blade Leos 11/11/17 0834: Subjective Follow-up For: Acute hypoxemic respiratory failure Acute bronchitis COPD exacerbation Subjective: Feels much better than yesterday. Still wheezy and short of breath. Gets winded on ambulation. No fevers or chills overnight. Other systems reviewed and negative except as above. Review of Systems Constitutional: Reports: see HPI. Objective Last 24 Hrs of Vital Signs/I&O Vital Signs Date Time Temp Pulse Resp B/P B/P Pulse O2 O2 Flow FiO2 Mean Ox Delivery Rate 11/11 0846 96 Room Air Room Air 11/11 0653 98.2 81 18 128/68 95 Room Air 11/11 0000 Room Air 11/10 2200 98.1 86 18 132/70 96 11/10 1640 96 Room Air Room Air 11/10 1448 97.8 88 20 126/68 94 Intake & Output 11/11 1600 11/11 0800 11/11 0000 Intake Total 240 240 Output Total Balance 240 240 Intake, Oral 240 240 Physical Exam General Appearance: Alert, Oriented X3, Cooperative Cardiovascular: Regular Rate, Normal S1, Normal S2 Lungs: Expiratory wheezes bilaterally Abdomen: Normal Bowel Sounds, Soft, No Tenderness Extremities: No Clubbing, No Cyanosis, No Edema Current Medications: Current Medications Sig/Mady Start time Last Medication Dose Route Stop Time Status Admin Acetaminophen 650 MG Q8P PRN 11/08 0430 AC 11/08 PO 1614 Acetylcysteine 2 ML ONCE ONE 11/11 0815 DC INH 11/11 0816 Albuterol Sulfate 3 ML EVERY 4 HRS/AWAKE 11/08 1200 AC 11/11 INH 0845 Albuterol Sulfate 2 PUF Q4-6 PRN PRN 11/07 2345 AC INH Azithromycin 500 MG DAILY 11/09 0900 DC 11/11 PO 11/11 0901 0819 Budesonide/ 2 PUF BID 11/07 0200 AC 11/11 Formoterol Fumarate INH 0819 Guaifenesin 600 MG Q12 11/09 0900 AC 11/11 PO 0820 Heparin Sodium 5,000 UNIT Q8 11/08 0600 AC 11/11 (Porcine) SC 0550 Ipratropium [place] 2.5 ML EVERY 4 HRS/AWAKE 11/08 1200 AC 11/11 INH 0845 Melatonin 5 MG ONCE ONE 11/10 1914 DC 11/10 PO 11/10 Methylprednisolone 40 MG Q12 11/09 0900 AC 11/11 IV 11/12 2101 0819 Nicotine 21 MG DAILY 11/08 0900 AC 11/11 TOP 0819 Patient Medication 1 ED ONE ONE 11/10 1045 DC 11/10 Teaching ED 11/10 1046 1301 Polyethylene Glycol 17 GM DAILY 11/10 0900 AC 11/11 PO 0819 Senna/Docusate Sodium 1 TAB BID 11/10 0900 AC 11/11 PO 0820 Assessment/Plan Assessment: 62-year-old woman smoker with history of COPD, hepatitis C, presented to [facility] ED on 11/07/2017 with worsening dyspnea, nonproductive cough and wheezing. 1. Acute hypoxemic respiratory failure, COPD exacerbation. Improvement in respiratory symptoms compared to yesterday. Continues to have diffuse wheezing. IV Solu-Medrol 40 mg every 12. Continue azithromycin for possible bronchitis. Mucinex twice daily. Feels congested, will trial with Inhalational NAC. On RA now, but short of breath on ambulation. Please check ambulatory O2 sats. Encourage ambulation. Out of bed to chair. Encouraged use of incentive spirometer. Continue Advair. TRC nebs. Supplemental oxygen, maintain saturations >90-92%. Full code. Regular diet. Heparin for DVT prophylaxis. Problem List: 1. Bronchitis 2. COPD (chronic obstructive pulmonary disease) Pain Ratin Pain Location: PRN Pain Goal: Remain pain free Pain Plan: PRN Tomorrow's Labs & Rationales: Not needed Robert Braun 11/11/17 1509: Attending MD Review Statement Attending Statement Attending MD Statement: examined this patient, discuss w/resident/PA/GUN PROFILER, agreed w/resident/PA/GUN PROFILER, reviewed EMR data (avail), discussed with nursing, discussed with case mgmt Attending Assessment/Plan: acute copd exac- cont on iv steroids and if wheezing better in am will transition to po steroid and plan dc home tomorrow. d/w pt the care plan and encouraged again to quit smoking.
--- NOTE | 2017-11-11 09:48 | PN- Pulmonary ---
Subjective HPI/Critical Care Issues: Patient remains comfortable on room air but continues to shortness of breath and nonproductive cough and wheezing Objective Current Medications: Current Medications Sig/Mady Start time Last Medication Dose Route Stop Time Status Admin Acetaminophen 650 MG Q8P PRN 11/08 0430 AC 11/08 PO 1614 Acetylcysteine 2 ML ONCE ONE 11/11 0815 DC INH 11/11 0816 Albuterol Sulfate 3 ML EVERY 4 HRS/AWAKE 11/08 1200 AC 11/11 INH 0845 Albuterol Sulfate 2 PUF Q4-6 PRN PRN 11/07 2345 AC INH Azithromycin 500 MG DAILY 11/09 0900 DC 11/11 PO 11/11 0901 0819 Budesonide/ 2 PUF BID 11/07 0200 AC 11/11 Formoterol Fumarate INH 0819 Guaifenesin 600 MG Q12 11/09 0900 AC 11/11 PO 0820 Heparin Sodium 5,000 UNIT Q8 11/08 06 AC 11/11 (Porcine) SC 0550 Ipratropium [place] 2.5 ML EVERY 4 HRS/AWAKE 11/08 1200 AC 11/11 INH 0845 Melatonin 5 MG ONCE ONE 11/10 1915 DC 11/10 PO 11/10 1916 2159 Methylprednisolone 40 MG Q12 11/09 09 11/11 IV 11/12 2101 0819 Nicotine 21 MG DAILY 11/08 0900 11/11 TOP 0819 Patient Medication 1 ED ONE ONE 11/10 1045 DC 11/10 Teaching ED 11/10 1046 1301 Polyethylene Glycol 17 GM DAILY 11/10 09 11/11 PO 0819 Senna/Docusate Sodium 1 TAB BID 11/10 0900 AC 11/11 PO 0820 Vital Signs & I&O Last 24 Hrs of Vitals and I&O: Vital Signs Date Time Temp Pulse Resp B/P B/P Pulse O2 O2 Flow FiO2 Mean Ox Delivery Rate 11/11 0846 96 Room Air Room Air 11/11 0653 98.2 81 18 128/68 95 Room Air 11/11 0000 Room Air 11/10 2200 98.1 86 18 132/70 96 11/10 1640 96 Room Air Room Air 11/10 1448 97.8 88 20 126/68 94 Intake & Output 11/11 1600 11/11 0800 11/11 0000 Intake Total 240 240 Output Total Balance 240 240 Intake, Oral 240 240 Oxygen saturation 96% exam for chest continues to show bilateral expiratory wheezing cardiac exam shows regular S1 and S2 without murmurs Impression/Plan Impression/Plan Impression/Plan: 62-year-old woman with exacerbation of COPD he has persistent bronchospasm. Recommendations: Sputum C&S. Increased mobilization and assess oxygen saturations with ambulation. Continue IV steroids today with the hope of transitioning to oral tomorrow and discharge
[2017-11-11 14:17] VITALS: BP 120/75
[2017-11-11 21:30] VITALS: BP 130/90
[2017-11-12 06:00] VITALS: BP 120/70
--- NOTE | 2017-11-12 08:39 | PN- Pulmonary ---
Subjective HPI/Critical Care Issues: Shortness of breath is improved patient is comfortable on room air Objective Current Medications: Current Medications Sig/Mady Start time Last Medication Dose Route Stop Time Status Admin Acetaminophen 650 MG Q8P PRN 11/08 0430 AC 11/08 PO 1614 Albuterol Sulfate 3 ML EVERY 4 HRS/AWAKE 11/08 1200 AC 11/12 INH 0825 Albuterol Sulfate 2 PUF Q4-6 PRN PRN 11/07 2345 AC INH Azithromycin 500 MG DAILY 11/09 0900 DC 11/11 PO 11/11 0901 0819 Budesonide/ 2 PUF BID 11/07 0200 AC 11/12 Formoterol Fumarate INH 0812 Guaifenesin 600 MG Q12 11/09 0900 AC 11/12 PO 0813 Heparin Sodium 5,000 UNIT Q8 11/08 06 AC 11/12 (Porcine) SC 0623 Ipratropium [place] 2.5 ML EVERY 4 HRS/AWAKE 11/08 1200 AC 11/12 INH 0825 Methylprednisolone 40 MG Q12 11/09 0900 AC 11/12 IV 11/12 2101 0813 Nicotine 21 MG DAILY 11/08 0900 AC 11/12 TOP 0813 Patient Medication 1 ED ONE ONE 11/11 1630 DC Teaching ED 11/11 1631 Polyethylene Glycol 17 GM DAILY 11/10 09 AC 11/12 PO 0813 Ramelteon 8 MG ONCE ONE 11/11 2215 DC 11/11 PO 11/11 2216 2230 Senna/Docusate Sodium 1 TAB BID 11/10 09 AC 11/12 PO 0813 Vital Signs & I&O Last 24 Hrs of Vitals and I&O: Vital Signs Date Time Temp Pulse Resp B/P B/P Pulse O2 O2 Flow FiO2 Mean Ox Delivery Rate 11/12 06 98.1 89 16 120/70 96 Room Air 11/12 0000 Room Air 11/11 2130 98.0 83 20 130/90 95 11/11 1640 96 Room Air 11/11 1417 98.5 79 20 120/75 95 Room Air 11/11 0846 96 Room Air Room Air Intake & Output 11/12 1600 11/12 0800 11/12 0000 Intake Total 250 Output Total Balance 250 Intake, Oral 250 Monitor oxygen saturation 95% exam for chest shows clear inspiration there are scattered but diminished expiratory wheezing cardiac exam shows regular S1 and S2 without murmurs Impression/Plan Impression/Plan Impression/Plan: 62-year-old woman admitted with exacerbation of COPD is clinically improved Recommendations: DC IV Solu-Medrol begin oral prednisone with slow taper. Follow-up in the office next week and follow-up with the COPD wellness clinic. Patient is again been counseled regarding need for smoking cessation
--- NOTE | 2017-11-12 08:52 | PN- Housestaff ---
See Addendum Subjective Follow-up For: Acute hypoxemic respiratory failure Acute bronchitis COPD exacerbation Subjective: Feels well this am. Feels ready to go home. Improved breathing status on ambulation. No fevers or chills. Review of Systems Constitutional: Reports: see HPI. Objective Last 24 Hrs of Vital Signs/I&O Vital Signs Date Time Temp Pulse Resp B/P B/P Pulse O2 O2 Flow FiO2 Mean Ox Delivery Rate 11/12 599 98.1 89 16 120/70 96 Room Air 11/12 0000 Room Air 11/11 2130 98.0 83 20 130/90 95 11/11 1640 96 Room Air 11/11 1417 98.5 79 20 120/75 95 Room Air Intake & Output 11/12 1600 11/12 0800 11/12 0000 Intake Total 460 250 Output Total Balance 460 250 Intake, Oral 460 250 Physical Exam General Appearance: Alert, Oriented X3, Cooperative Cardiovascular: Regular Rate, Normal S1, Normal S2 Lungs: Clear to Auscultation, Expiratory wheezes Extremities: No Clubbing, No Cyanosis, No Edema Current Medications: Current Medications Sig/Mady Start time Last Medication Dose Route Stop Time Status Admin Acetaminophen 650 MG Q8P PRN 11/08 0430 AC 11/08 PO 1614 Albuterol Sulfate 3 ML EVERY 4 HRS/AWAKE 11/08 1200 AC 11/12 INH 0825 Albuterol Sulfate 2 PUF Q4-6 PRN PRN 11/07 2345 AC INH Azithromycin 500 MG DAILY 11/09 09 DC 11/11 PO 11/11 0901 0819 Budesonide/ 2 PUF BID 11/07 0200 AC 11/12 Formoterol Fumarate INH 0812 Guaifenesin 600 MG Q12 11/09 0900 AC 11/12 PO 0813 Heparin Sodium 5,000 UNIT Q8 11/08 06 AC 11/12 (Porcine) SC 0623 Ipratropium [place] 2.5 ML EVERY 4 HRS/AWAKE 11/08 1200 AC 11/12 INH 0825 Methylprednisolone 40 MG Q12 11/09 09 AC 11/12 IV 11/12 2101 0813 Nicotine 21 MG DAILY 11/08 09 AC 11/12 TOP 0813 Patient Medication 1 ED ONE ONE 11/11 1630 DC Teaching ED 11/11 1631 Polyethylene Glycol 17 GM DAILY 11/10 09 AC 11/12 PO 0813 Ramelteon 8 MG ONCE ONE 11/11 2215 DC 11/11 PO 11/11 2216 2230 Senna/Docusate Sodium 1 TAB BID 11/10 0900 AC 11/12 PO 0813 Assessment/Plan Assessment: 62-year-old woman smoker with history of COPD, hepatitis C, presented to [facility] ED on 11/07/2017 with worsening dyspnea, nonproductive cough and wheezing. 1. Acute hypoxemic respiratory failure, COPD exacerbation. Improvement in respiratory symptoms compared to yesterday. Continues to have diffuse wheezing. Transitio to PO steroids.. Continue PO azithromycin x 5 days total for possible bronchitis. Mucinex twice daily. Feels congested, will trial with Inhalational NAC. On RA now, better breathing on ambulation. Please check ambulatory O2 sats. Encourage ambulation. Out of bed to chair. Encouraged use of incentive spirometer. Continue Advair. TRC nebs. Supplemental oxygen, maintain saturations >90-92%. Discharge home with slow Pred taper/ Full code. Regular diet. Heparin for DVT prophylaxis. Problem List: 1. COPD (chronic obstructive pulmonary disease) Pain Ratin Pain Location: None Pain Goal: Remain pain free Pain Plan: PRN Tomorrow's Labs & Rationales: Not needed
[2017-11-12] MEDS ORDERED: PREDNISONE10 M2 PO (09:54)
--- NOTE | 2017-11-12 10:37 | Discharge Summary ---
Visit Information Visit Dates Admission Date: 11/08/17 Discharge Date: 11/12/17 Hospital Course Course Attending Physician: Kade CORNELL,Robert Paris [facility]: Patient is a 62-year-old woman active smoker with history of COPD, hepatitis C status post Harvoni, who presented to [facility] ED on 11/08/2017 for worsening dyspnea. Her symptoms did not get better with nebulizer treatments at home. She reported that her COPD exacerbated due to weather changes at the time of admission. At the time of admission, she denied any sick contacts or any recent travel. Vitals upon arrival to the ED. Afebrile, tachycardic 200s-120s, blood pressure 148/82, saturations 88-95% on room air to 2 L nasal cannula. Exam at the time revealed patient to be in mild respiratory distress, lung exam revealing of bilateral prolonged expiratory wheezes with reduced air entry. On labs, she was leukocytotic with peripheral eosinophilia, troponins negative. Chest x-ray. Hyperinflated lungs. EKG with sinus tachycardia. Problem list: 1. Acute hypoxic respiratory failure due to COPD exacerbation. Patient was admitted to general medicine floors and provided with scheduled TRC nebs and as needed albuterol and ipratropium. She was started on IV Solu-Medrol upon admission with gradual transition to p.o. steroids. Patient was extensively counseled to consider quitting smoking, while inpatient she was provided with a nicotine patch which seemed to help. She was also given 5 day course of Zithromax. She will follow-up at the COPD clinic and with Dr. Danielson as an outpatient. 2. Insomnia. Patient reported better sleep with use of Rozerem. She will be discharged with prescription for Rozerem. Full code. She was provided with a regular diet. Heparin was used for DVT prophylaxis. Allergies: Coded Allergies: Penicillins (BREAKOUT IN RED BLOTCHES AND BUMPS ALL OVER BODY PER PT 10/16/16) codeine (Intermediate, ITCHING 10/16/16) Disposition Summary Disposition Principal Diagnosis: Acute hypoxemic respiratory failure secondary to COPD exacerbation. Additional Diagnosis: Insomnia. Discharge Disposition: home or self care Discharge Instructions General Discharge Information Code Status: Full Code Patient's Diet: Regular diet. Patient's Activity: As tolerated. Follow-Up Instructions/Appts: Follow-up at COPD clinic. Follow-up with Dr. Danielson. Follow-up with PCP. Medications at Discharge Discharge Medications: Continue taking these medications: Ipratropium/Albuterol Sulfate (Combivent Respimat Inhal [place]) 4 GM MIST.INHAL 1 PUFF Inhale through mouth TWICE DAILY as needed for SOB Days = 30 Instructions: Reason to Stop at ADM: [facility] NEBS Comments: NOT GIVEN IN HOSPITAL Albuterol Sulfate (Albuterol Sulfate) 2.5 MG/3 ML VIAL.NEB 1 Vial Inhale Solution EVERY 4 HOURS NEEDED as needed for wheezing/ shortness of breath Qty = 50 Instructions: Reason to Stop at ADM: [facility] NEBS Comments: Last Taken: 11/12/17 Time: 825AM Tiotropium [place] (Spiriva) 18 MCG CAP.W.DEV 1 Capsule Inhale through mouth DAILY Qty = 30 Comments: NOT GIVEN IN HOSPITAL Albuterol Sulfate (Proair Hfa) 90 MCG HFA.AER.AD 2-4 Puff Inhale through mouth EVERY 4-6 HOURS NEEDED as needed for shortness of breath Qty = 1 Comments: NOT GIVEN IN HOSPITAL Inhaler, Assist Devices (Microchamber) 1 EACH SPACER 1 Unit Inhale through mouth PER PROTOCOL Qty = 1 Comments: SYMBICORT 2 PUFF Last Taken: 11/12/17 Time: 8:12 AM Fluticasone/Salmeterol (Advair 500-50 Diskus) 500 MCG-50 MCG/DOSE BLST.W.DEV 1 Puff Inhale through mouth TWICE DAILY Instructions: NOT GIVEN IN HOSPITAL Start taking the following new medications: Nicotine (Nicotine Patch) 21 MG/24 HOUR PATCH.TD24 21 Milligram On the skin DAILY Qty = 30 No Refills Comments: Last Taken: 11/12/17 Time: 8:13 AM Guaifenesin (Guaifenesin ER) 600 MG TAB.ER.12H 600 Milligram ORAL EVERY 12 HOURS as needed for Mucus Qty = 60 No Refills Comments: Last Taken: 11/12/17 Time: 8:13 AM Prednisone (Prednisone) 10 MG TABLET 1 Tablet ORAL DAILY Qty = 38 No Refills Instructions: Take 4 tabs daily for 3 days (Start 11/13/17) Then take 3 tabs daily for next 3 days Then take 2 tabs daily for 3 days Then take 1 tab daily for 3 days, then stop and discuss further care with Lung doctor. Comments: NOT GIVEN IN HOSPITAL Ramelteon (Rozerem) 8 MG TABLET 1 Tablet ORAL TAKE AT BEDTIME as needed for SLEEP Qty = 30 No Refills Copies To: Sunita CORNELL,Maik Santos; Adán Jorge APRN Attending MD Review Statement Documenting Attending: Kade CORNELL,Robert Paris
[2017-11-12] MEDS ORDERED: ROZEREM8 M1 PO (11:12)
== END 2017-11-12 11:33 | DRG 140 ==
LOC: ERH 20:11 → 2NA 11-08 00:50 → ERHI 11-08 00:50 → ENRESERV 11-08 01:29 → 2NA 11-08 01:56 → ENPENDDIS 11-12 11:02 → 2NA 11-12 11:33
PROVIDERS: Internal Medicine Endocrinology, Diabetes & Metabolism; Pediatrics
DX: J44.1 Chronic obstructive pulmonary disease with (acute) exacerbation (principal); J96.01 Acute respiratory failure with hypoxia; J20.9 Acute bronchitis, unspecified; B18.2 Chronic viral hepatitis C; E66.8 Other obesity; Z68.29 Body mass index [BMI] 29.0-29.9, adult; J44.0 Chronic obstructive pulmonary disease with (acute) lower respiratory infection; D72.829 Elevated white blood cell count, unspecified; F17.210 Nicotine dependence, cigarettes, uncomplicated; Z88.5 Allergy status to narcotic agent; Z90.710 Acquired absence of both cervix and uterus; Z88.0 Allergy status to penicillin
CPT/HCPCS: 2NASP; 36415; 71045; 80307; 82436; 87070; 93005; 93010; 94644; 96374; 96375; 99291; J0456; J0696; J1644; J2920; J2930; J3490; J7040; J7608